=== PATIENT | female | born 1950 | race Caucasian/White ===

== ENCOUNTER → 2024-02-17 09:20 | Outpatient (BNVA) | payer MEDICARE, SELFPAY | PROVIDERS: PCP Nurse Practitioner Family; Visit Provider Nurse Practitioner Family | DX: Z13.6 Encounter for screening for cardiovascular disorders (principal); E55.9 Vitamin D deficiency, unspecified; Z79.899 Other long term (current) drug therapy | CPT/HCPCS: 80053; 80061; 81003; 82306; 83036; 84443; 85025 ==

== ENCOUNTER → 2024-05-21 15:33 | Outpatient (BNVA) | payer MEDICARE, SELFPAY | PROVIDERS: PCP Nurse Practitioner Family; Visit Provider Nurse Practitioner Family | DX: N39.0 Urinary tract infection, site not specified (principal); Z79.899 Other long term (current) drug therapy | CPT/HCPCS: 81003; 87077; 87086; 87184 ==

== ENCOUNTER → 2024-08-03 11:13 | Outpatient (BNVA) | payer MEDICARE, SELFPAY | PROVIDERS: PCP Nurse Practitioner Family; Visit Provider Nurse Practitioner Family | DX: N39.0 Urinary tract infection, site not specified (principal); M81.0 Age-related osteoporosis without current pathological fracture; E03.8 Other specified hypothyroidism; E55.9 Vitamin D deficiency, unspecified; D64.9 Anemia, unspecified; Z79.899 Other long term (current) drug therapy | CPT/HCPCS: 80053; 80061; 81000; 81003; 82306; 82607; 83036; 83921; 84439; 84443; 85025 ==

== ENCOUNTER 2024-08-12 14:06 | Outpatient (CLI) | payer MEDICARE, SELFPAY ==
--- NOTE | 2024-08-12 14:30 | XR_ITS ---
WS: [id number] DEXA (DUAL ENERGY X-RAY ABSORPTIOMETRY) Bone mineral density was performed using a Thryve machine. HISTORY: M81.0 - Age-related osteoporosis without current patholog... COMPARISON: None available. Lumbar spine BMD (L1-L4): 1.095 g/cm2 T score: -0.7 Z score: 1.2 Total hip BMD: Left: 0.641 g/cm2. T score: -2.9 Z score: -1.1 Right: 0.641 g/cm2. T score: -2.9 Z score: -1.1 XR/XR DEXA axial skeleton* [id number] IMPRESSION: OSTEOPOROSIS based upon the WHO classification for females.
== END 2024-08-12 14:07 | disposition home or self-care (01) ==
PROVIDERS: PCP Nurse Practitioner Family; Visit Provider Nurse Practitioner Family
DX: M81.0 Age-related osteoporosis without current pathological fracture (principal)
CPT/HCPCS: 77080

== ENCOUNTER 2024-11-11 18:32 | Emergency (ER) | payer MEDICARE, SELFPAY ==
--- OUTSIDE RECORDS SUMMARY | 2006-04-15 23:14 | XMS_ITS | Continuity of Care Document ---
Author Organization Paul Glover Address [address] [place] [address] Phone Care Team Providers Care Drier Belt Conveyor Name Role Phone Daren Miller MD Unavailable Unavailable Medications Medication Instructions Dosage Effective Dates (start - stop) Status Comments Protonix 40 mg Tab Take one tablet by mouth daily - Active SLOW-MAG 64MGTABLET SA Take one tablet by mouth daily - Active Arimidex 1 mg Tab Take one tablet by mouth daily - Active Klor-Con M20 20 mEq Tab Take one tablet by mouth two times per day - Active Lasix 40 mg Tab Take one tablet by mouth daily - Active Tenormin 25 mg Tab Take one tablet by mouth daily - Active Crestor 20 mg Tab Take one tablet by mouth daily - Active Lotensin 20 mg Tab Take one tablet by mouth daily - Active Lotensin 40 mg Tab Take one tablet by mouth daily - Active Plavix 75 mg Tab Take one tablet by mouth daily - Active Norvasc 10 mg Tab Take one tablet by mouth daily - Active Procedures Procedure Date Init Hosp-da E&m Hi Severity 7 07 Subsqt Hosp-da E&m Minr Compl 7 Subsqt Hosp-da E&m Minr Compl 7 Subsqt Hosp-da E&m Minr Compl 7 Subsqt Hosp-da E&m Minr Compl 7 Advance Directives Directive Yes / No Effective Date File Name No Information Encounters Encounter Description Practice Location Reason(s) For Visit Diagnoses Date Provider Providers Copied on Encounter Init Hosp-da E&m Hi Severity 7 [facility], [address] [employer] [employer] [place], [id number], [place] tel: [phone] [facility] No Information 7 Paul Mercedes. [address], [place], [id number] . tel: [phone] Referring Provider: Daren Miller MD, [address], [place], [address] . tel:[phone] Paul Romero MD [employer], [address] [employer] [place], [id number], [place] tel: [phone] [facility] No Information 6 Paul Colby. [address], [address], [place], [id number] . tel: [phone] Referring Provider: Daren Miller MD, [address], [place], [address] . tel:[phone] Paul Romero MD [employer], [address] [employer] [place], [id number], [place] tel: [phone] [facility] No Information 5 Paul Colby. [address], [address] [place], [id number] . tel: [phone] Referring Provider: Daren Miller MD, [address], [place], [address] . tel:[phone] Paul Romero MD [employer], [address] [facility] [employer] [place], [id number], [place] tel:[phone] [facility] No Information 5 Paul Colby. [address], [address] [place], [id number] . tel: [phone] Referring Provider: Daren Miller MD, [address], [place], [address] . tel:[phone] Paul Romero MD [employer], [address] [place], [id number], [place] tel:[phone] [facility] No Information 200 5 Paul Colby. [address] [facility], [address], [place], [id number] . tel: [phone] Referring Provider: Daren Mliler MD, [address], [place], [address] . tel:[phone] Paul Romero MD [employer], [address] [facility] [id number] [place] tel:[phone] [facility] CAD Graft DiseaseHypertension NOSBenign HypertensionHyperli pidemia 1 Nydia Durant. [address], [place], [id number] . tel: [phone] Family History Family Member Type Diagnosis Age At Onset No Information Payers Payer name Insurance type Covered republican ID Authoriza tion(s) No Information Social History Type Description Quantity Date Captured Comments Sex Female Smoking Status No Information Chief Complaint And Reason For Visit No Information Reason For Referral Reason For Referral No Information History Of Present Illness Encounter Date Complaint History Of Prese nt Illness No Information Functional Status Date Functional Assessmen t No Information Instructions Date Instruction Additional Infor mation No Information Assessments Type Assessment Date No Information Patient Care Teams Name Effective Dates (start - stop) Status Members No Information
[2024-11-11] VITALS (7 sets, daily range): BP systolic 115–139; BP diastolic 58–81; PULSE 58–68; RESP 16–18; TEMP 36.5; O2SAT 94–100; BMI 22.3
--- NOTE | 2024-11-11 18:43 | XRR_ITS ---
PROCEDURE INFORMATION: Exam: XR Chest Exam date and time: 11/11/2024 7:38 PM Age: 74 years old Clinical indication: Chest wall pain; Additional info: Chest pain TECHNIQUE: Imaging protocol: Radiologic exam of the chest. Views: 1 view. COMPARISON: No relevant prior studies available. FINDINGS: Lungs: Small airspace opacity in the right cardiophrenic angle. The remainder of the lungs are clear. Pleural spaces: Unremarkable. No pleural effusion. No pneumothorax. Heart/Mediastinum: Unremarkable. No cardiomegaly. Bones/joints: Unremarkable. XR/XR chest 1V portable [id number] IMPRESSION: 1. Small airspace opacity in the right cardiophrenic angle could represent atelectasis or pneumonia. 2. The remainder of the lungs are clear.
--- OUTSIDE RECORDS SUMMARY | 2024-11-11 18:44 | XMS_ITS | Encounter Summary ---
Author Organization [facility] Address 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
--- OUTSIDE RECORDS SUMMARY | 2024-11-11 18:44 | XMS_ITS | Encounter Summary ---
Author Organization [facility] Address [address] [place] [address] Care Team Providers Care Lockstitch Zipper Setter Name Role Phone Jeffy Negrete MD Primary Care Provider [phone] [phone] Encounter Details Date Type Department Care Team (Late st Contact Info) Description 11/11/2001 Outpatient Historical HIS PATIENT IN A BED Yun Dior MD [address] [facility] [address] [place] [address] HYPOVOLEMIA (Primary Dx) Social History Tobacco Use Types Packs/Day Years Used Date Smoking Tobacco: Never Assessed Comments Unknown Sex and Gender Information Value Date Recorded Sex Assigned at Not on file Legal Sex Female 3:32 AM BEN DAY ARTIST Gender Identity Not on file Sexual Orientation Not on file documented as of this encounter Plan of Treatment Not on file documented as of this encounter Visit Diagnoses Diagnosis Volume depletion- Primary documented in this encounter Care Teams Lockstitch Zipper Setter Relationship Specialty Start Date End Date Jeffy Negrete MD [address] [facility] [address] [place] [address] PCP - General Family Practice 01/07/24 documented as of this encounter
--- OUTSIDE RECORDS SUMMARY | 2024-11-11 18:44 | XMS_ITS | Encounter Summary ---
Author Organization [facility] Address [address] [place] [address] Care Team Providers Care Signal Worker Name Role Phone Jeffy Negrete MD Primary Care Provider +1 [phone] Encounter Details Date Type Department Care Team (Latest Contact Info) Description 04/10/2001 Outpatient Historical HIS [facility] Rogerio Kingsley MD [address] [facility] [address] [place] [address] URIN TRACT INFECTION NOS (Primary Dx) Social History Tobacco Use Types Packs/Day Years Used Date Smoking Tobacco: Never Assessed Comments Unknown Sex and Gender Information Value Date Recorded Sex Assigned at Not on file Legal Sex Female 3:32 AM REGULATORY ATTORNEY Gender Identity Not on file Sexual Orientation Not on file documented as of this encounter Plan of Treatment Not on file documented as of this encounter Visit Diagnoses Diagnosis Urinary tract infection, site not specified- Primary documented in this encounter Care Teams Signal Worker Relationship Specialty Start Date End Date Jeffy Negrete MD [address] [place] [address] PCP - General Family Practice 01/07/24 documented as of this encounter
--- OUTSIDE RECORDS SUMMARY | 2024-11-11 18:44 | XMS_ITS | Encounter Summary ---
Author Organization [employer] [facility] Address [address] [place] [address] Care Team Providers Care Piano Teacher Name Role Phone Jeffy Negrete MD Primary Care Provider +1 [phone] Encounter Details Date Type Department Care Team (Latest Contact Info) Description 04/17/2001 Outpatient Historical [place] [address] [place] [address] SCREENING FOR OSTEOPOROSIS (Primary Dx) Social History Tobacco Use Types Packs/Day Years Used Date Smoking Tobacco: Never Assessed Comments Unknown Sex and Gender Information Value Date Recorded Sex Assigned at Not on file Legal Sex Female 3:32 AM DIGITAL FORENSIC ANALYST Gender Identity Not on file Sexual Orientation Not on file documented as of this encounter Plan of Treatment Not on file documented as of this encounter Visit Diagnoses Diagnosis Special screening for osteoporosis- Primary documented in this encounter Care Teams Piano Teacher Relationship Specialty Start Date End Date Jeffy Negrete MD [address] [facility] [address] [place] [address] PCP - General Family Practice 01/07/24 documented as of this encounter
--- OUTSIDE RECORDS SUMMARY | 2024-11-11 18:44 | XMS_ITS | Encounter Summary ---
Author Organization [facility] Address 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
--- OUTSIDE RECORDS SUMMARY | 2024-11-11 18:44 | XMS_ITS | Encounter Summary ---
Author Organization [facility] Address [address] [place] [address] Care Team Providers Care Client Advocate Name Role Phone Jeffy Negrete MD Primary Care Provider [phone] [phone] Encounter Details Date Type Department Care Team (Late st Contact Info) Description 03/31/2001 Outpatient Historical HIS [facility]PT [place] [address] [place] [address] Social History Tobacco Use Types Packs/Day Years Used Date Smoking Tobacco: Never Assessed Comments Unknown Sex and Gender Information Value Date Recorded Sex Assigned at Not on file Legal Sex Female 3:32 AM GRANTS ADMINISTRATOR Gender Identity Not on file Sexual Orientation Not on file documented as of this encounter Plan of Treatment Not on file documented as of this encounter Visit Diagnoses Not on filedocumented in this encounter Care Teams Client Advocate Relationship Specialty Start Date End Date Jeffy Negrete MD [address] [facility] [address] [place] [address] PCP - General Family Practice 01/07/24 documented as of this encounter
--- OUTSIDE RECORDS SUMMARY | 2024-11-11 18:44 | XMS_ITS | Encounter Summary ---
Author Organization [facility] Address [address] [place] [address] Care Team Providers Care Director Trade Name Role Phone Jeffy Negrete MD Primary Care Provider +1 [phone] Encounter Details Date Type Department Care Team (Latest Contact Info) Description 06/04/2003 Outpatient Historical HIS [facility] Antoine Esqueda MD [address] [address] SCREENING MAMM-MAILG NEOPL-OTHER (Primary Dx) Social History Tobacco Use Types Packs/Day Years Used Date Smoking Tobacco: Never Assessed Comments Unknown Sex and Gender Information Value Date Recorded Sex Assigned at Not on file Legal Sex Female 3:32 AM CANADIAN BACON TIER Gender Identity Not on file Sexual Orientation Not on file documented as of this encounter Plan of Treatment Not on file documented as of this encounter Visit Diagnoses Diagnosis Other screening mammogram- Primary documented in this encounter Care Teams Director Trade Relationship Specialty Start Date End Date Jeffy Negrete MD [address] [place] [address] PCP - General Family Practice 01/07/24 documented as of this encounter
--- OUTSIDE RECORDS SUMMARY | 2024-11-11 18:44 | XMS_ITS | Encounter Summary ---
Author Organization [employer] [facility] Address [address] [place] [address] Care Team Providers Care Quality Assurance Assistant Name Role Phone Jeffy Negrete MD Primary Care Provider +1 [phone] Encounter Details Date Type Department Care Team (Latest Contact Info) Description 12/04/2002 Outpatient [facility] [address] [facility] [address] [place] [address] Eleanor Foley MD NO ADDRESS ON FILE HYPERLIPIDEMIA NEC/NOS (Primary Dx) Social History Tobacco Use Types Packs/Day Years Used Date Smoking Tobacco: Never Assessed Comments Unknown Sex and Gender Information Value Date Recorded Sex Assigned at Not on file 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
--- OUTSIDE RECORDS SUMMARY | 2024-11-11 18:44 | XMS_ITS | Clinical Summary ---
Author Organization [facility] Address [address] [place] [address] Phone Care Team Providers Care Production Broaching Machine Operator Name Role Phone Jeffy Negrete MD Primary Care Provider +1 [phone] Allergies Active Allergy Reactions Criticality Noted Date Comments Amitriptyline Hcl 11/27/2004 Tegaserod 11/27/2004 Tolterodine 11/27/2004 Medications levothyroxine (SYNTHROID) 100 mcg Oral Tab Take 1 Tab by mouth daily. 30 Tab 2 12/10/19 08 Active Additional Information Patient taking differently: 88 mcgOral DAILY, Reported on 01/07/2024 estradiol (CLIMARA) 0.05 mg/24 hr Transdermal PTWK Apply 1 Patch to skin as directed every 7 days. 13 Patch 3 01/05/20 Active Additional Information Patient not taking.Reported on 01/07/2024 lovastatin (MEVACOR) 40 mg tablet Take 1 Tablet by mouth daily. 11/23/19 24 Active aspirin (ECOTRIN EC) 81 mg Tablet, Delayed Release (E.C.) Take 81 mg by mouth daily. Active acyclovir (ZOVIRAX) 400 mg tablet Take 400 mg by mouth see administration instructions. daily Active calcium-vitamin D3 (CALTRATE 600+D) 600 mg-5 mcg (200 unit) Tablet Take 1 Tablet by mouth. Active mirabegron (MYRBETRIQ ORAL) Take 25 mg by mouth. Active Active Problems Problem Noted Date Diagnosed Date Palpitations 01/17/2007 Obesity, unspecified 05/02/2005 Encounter for long-term (current) use of other m edications 04/27/2005 Allergic rhinitis, cause unspecified 11/27/2004 Unspecified hypothyroidism 11/27/2004 Unspecified menopausal and postmenopausal disord er 11/27/2004 Unspecified urinary incontinence 11/27/2004 Migraine, unspecified, with intractable migraine, so stated, without mention of status migrainosus 11/27/2004 Unspecified constipation 11/27/2004 Other and unspecified hyperlipidemia 11/27/2004 Family history of other cardiovascular diseases( V17.49) 11/27/2004 Overview (04/12/2010): Updating IMO/ICD9 Code and Description Family history of malignant neoplasm of breast 0 11/27/2004 Unspecified spontaneous abor tion without mention of complication 11/27/2004 Pain in limb 10/18/2004 Resolved Problems Problem Noted Date Diagnosed Date Resolved Date Cough 01/17/2007 07/05/2007 Sciatica 01/17/2007 07/05/2007 Sprain and strain of other s pecified sites of shoulder and upper arm 01/17/2007 07/05/2007 Disorder of bone and cartilage, unspecified 06/11/2006 07/05/2007 Acute sinusitis, unspecified 05/29/2006 07/05/2007 Routine general medical exam ination at a health care facility 05/02/2006 07/05/2007 Special screening for malign ant neoplasms, colon 05/02/2006 07/05/2007 Diarrhea 09/07/2005 07/05/2007 Screening for diabetes mellitus 08/03/2005 07/05/2007 Acute, but ill-defined, cere brovascular disease 11/27/2004 07/05/2007 Encounters Date Type Department Care Team Description 11/04/2024 External Device Data STL ABSTRACTION Provider, Abstract 2024 External Device Data ST[facility] ABSTRACTION Provider, Abstract 09/30/2024 External Device Data [facility] ABSTRACTION Provider, Abstract 09/30/2024 External Device Data [facility] ABSTRACTION Provider, Abstract 09/02/2024 External Device Data [facility] ABSTRACTION Provider, Abstract from Last 3 Months Immunizations Immunization Administration Dates Next Due (TDVAX)(7 YRS UP) TETANUS AN D DIPHTHERIA TOXOIDS, ADSORBED (2 LF OF TETANUS TOXOID AND 2 LF OF DIPHTHERIA TOXOID), 0.5ML (PF), IM 05/03/2004 Family History Medical History Relation Name Comments Breast Cancer Mother Relation Name Status Comments Mother Social History Tobacco Use Types Packs/Day Years Used Date Smoking Tobacco: Never Alcohol Use Standard Drinks/Week Comments No 0 (1 standard drink = 0.6 oz pur e alcohol) Comments No Sex and Gender Information Value Date Recorded Sex Assigned at Not on file Legal Sex Female 3:32 AM TISSUE COORDINATOR Gender Identity Not on file Sexual Orientation Not on file Last Filed Vital Signs Vital Sign Reading Time Taken Comments Blood Pressure 110/62 01/07/2024 9:53 AM CDT Pulse 58 01/07/2024 9:53 AM CDT Temperature 36.2 C (97.1 F) 01/12/2008 3:46 PM CDT Respiratory Rate 16 01/07/2024 9:53 AM CDT Oxygen Saturation 98% 01/07/2024 9:53 AM CDT Inhaled Oxygen Concentration - - Weight 57.6 kg (127 lb) 01/07/2024 9:53 AM CDT Height 162.6 cm (5' 4 ) 01/07/2024 9:53 AM CDT Body Mass Index 21.8 01/07/2024 9:53 AM CDT Plan of Treatment Health Maintenance Due Date Last Done Comments FIT/ DNA Q 3 YEARS (AUTO ORDER) 1968 FIT/FOBT Q 1 YEAR (AUTO ORDER) 1968 FLEX SIG/CT COLONOGRAPHY Q 5 YEARS (AUTO ORDER) 1968 COLORECTAL CANCER SCREENING (AUTO ORDER) 10/21/1995 COLORECTAL SCREENING 10/21/1995 Colorectal Cancer Screening (AUTO ORDER) 10/21/1995 Colorectal Cancer Screening 10/21/1995 FIT-DNA Q 3 years 10/21/1995 FIT/FOBT Q 1 year 10/21/1995 Flex Sig/CT Colonography Q 5 years 10/21/1995 PNEUMOCOCCAL VACCINE 50+ YEA RS (1 of 1 - PCV) 2000 ZOSTER VACCINE (1 of 2) 2000 DTAP/TDAP/TD VACCINES (1 - Tdap) 05/04/2004 05/03/19 05 Traditional Medicare (ACO) A nnual Wellness Visit 07/05/2008 07/05/2007 Medicare Ad[place] ([place]) Prev entative Visit/Annual Wellness Visit 03/18/2024 07/05/2007, 05/02/2006, 05/03/2004 INFLUENZA VACCINE (#1) 2024 01/07/2024, 2023 BREAST CANCER SCREENING 01/30/2025 01/31/20 24, 12/12/2022, 08/26/2007 RSV VACCINE (60+ or ) (1 - 1-dose 75+ series) 2025 OSTEOPOROSIS SCREENING 06/10/2028 06/11/2023, 2023 Procedures Procedure Name Priority Date/Time Associated Diagnosis Comments MAMMO 3D CHADWICK SCREEN BILAT W OR WO CAD Routine 01/31/2024 10:17 AM TISSUE COORDINATOR Encounter for screening mammogram for breast cancer XR DEXA BONE DENSITY AXIAL 1 OR MORE SITES Routine 06/11/2023 12:32 PM CDT from Last 3 Months or Most Recently Relevant to Health Maintenance Results * MAMMO 3D CHADWICK SCREEN BILAT W OR WO CAD (01/31/2024 10:17 AM TISSUE COORDINATOR) Anatomical Region Laterality Modality Breast Bilateral Mammography, Dig ital Radiography Impressions 02/12/2024 2:28 PM TISSUE COORDINATOR : No mammographic evidence of malignancy. BI-RADS ASSESSMENT: 1 - Negative RECOMMENDATION: Routine annual screening mammography. Narrative 02/12/2024 2:28 PM TISSUE COORDINATOR EXAM: MAMMO SCRN BILAT 3D CHADWICK W OR WO CAD INDICATION: Screening COMPARISON: 12/12/2022 MAMMO PRIOR STUDY BREAST COMPOSITION: The breasts are heterogeneously dense, which may obscure small masses. FINDINGS: RIGHT BREAST: There are no suspicious masses, calcifications, or areas of architectural distortion. LEFT BREAST: There are no suspicious masses, calcifications, or areas of architectural distortion. Mily Carbajal NP MAMMO ORDERABLES Final Result * XR DEXA BONE DENSITY AXIAL 1 OR MORE SITES (06/11/2023 12:32 PM CDT) Anatomical Region Laterality Modality Other Abstract Provider DIAGNOSTIC IMAGING ORDERABLES Edited Result - Final from Last 3 Months or Most Recently Relevant to Health Maintenance Insurance MEDICARE PART A AND B BCBS MEDICARE HMO Care Teams Production Broaching Machine Operator Relationship Specialty Start Date End Date Jeffy Negrete MD [address] [id number] PCP - General Family Practice 01/07/24
--- OUTSIDE RECORDS SUMMARY | 2024-11-11 18:44 | XMS_ITS | Encounter Summary ---
Author Organization [facility] Address 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
--- OUTSIDE RECORDS SUMMARY | 2024-11-11 18:44 | XMS_ITS | Encounter Summary ---
Author Organization [employer] [facility] Address 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
--- OUTSIDE RECORDS SUMMARY | 2024-11-11 18:44 | XMS_ITS | Encounter Summary ---
Author Organization [facility] Address [address] [place] [address] Care Team Providers Care Guidance And Control System Engineer Name Role Phone Jeffy Negrete MD Primary Care Provider +1 -[phone] Encounter Details Date Type Department Care Team (Late st Contact Info) Description 10/08/2001 Outpatient Historical HIS [facility] DEPT OF FAMILY MEDICINE Yanet Cuevas MD NO ADDRESS ON FILE Social History Tobacco Use Types Packs/Day Years Used Date Smoking Tobacco: Never Assessed Comments Unknown Sex and Gender Information Value Date Recorded Sex Assigned at Not on file Legal Sex Female 3:32 AM INSTRUMENT STERILIZER Gender Identity Not on file Sexual Orientation Not on file documented as of this encounter Plan of Treatment Not on file documented as of this encounter Visit Diagnoses Not on filedocumented in this encounter Care Teams Guidance And Control System Engineer Relationship Specialty Start Date End Date Jeffy Negrete MD [address] [facility] [address] [place] [address] PCP - General Family Practice 01/07/24 documented as of this encounter
--- OUTSIDE RECORDS SUMMARY | 2024-11-11 18:44 | XMS_ITS | Encounter Summary ---
Author Organization [facility] Address [address] [place] [address] Care Team Providers Care Vp Research Name Role Phone Jeffy Negrete MD Primary Care Provider +1 [phone] Encounter Details Date Type Department Care Team (Latest Contact Info) Description 07/10/2002 Outpatient Historical HIS [facility] Antoine Esqueda MD [address] [address] SCREENING MAMM-MAILG NEOPL-OTHER (Primary Dx) Social History Tobacco Use Types Packs/Day Years Used Date Smoking Tobacco: Never Assessed Comments Unknown Sex and Gender Information Value Date Recorded Sex Assigned at Not on file Legal Sex Female 3:32 AM EMERGENCY CARE ATTENDANT Gender Identity Not on file Sexual Orientation Not on file documented as of this encounter Plan of Treatment Not on file documented as of this encounter Visit Diagnoses Diagnosis Other screening mammogram- Primary documented in this encounter Care Teams Vp Research Relationship Specialty Start Date End Date Jeffy Negrete MD [address] [place] [address] PCP - General Family Practice 01/07/24 documented as of this encounter
--- OUTSIDE RECORDS SUMMARY | 2024-11-11 18:44 | XMS_ITS | Encounter Summary ---
Author Organization [employer] [facility] Address [address] [place] [address] Care Team Providers Care Manager Of Internal Audit Name Role Phone Jeffy Negrete MD Primary Care Provider +1 [phone] Encounter Details Date Type Department Care Team (Latest Contact Info) Description 10/27/2001 Outpatient Historical HIS [facility] PABLO Steiner, [place] [address] [place] [address] HYPOTHYROIDISM NOS (Primary Dx) Social History Tobacco Use Types Packs/Day Years Used Date Smoking Tobacco: Never Assessed Comments Unknown Sex and Gender Information Value Date Recorded Sex Assigned at Not on file Legal Sex Female 3:32 AM NEW PRODUCT TRAINER Gender Identity Not on file Sexual Orientation Not on file documented as of this encounter Plan of Treatment Not on file documented as of this encounter Visit Diagnoses Diagnosis Unspecified hypothyroidism- Primary documented in this encounter Care Teams Manager Of Internal Audit Relationship Specialty Start Date End Date Jeffy Negreet MD [address] [facility] [address] [place] [address] PCP - General Family Practice 01/07/24 documented as of this encounter
--- OUTSIDE RECORDS SUMMARY | 2024-11-11 18:44 | XMS_ITS | Encounter Summary ---
Author Organization [facility] Address [address] [place] [address] Care Team Providers Care Shook Machine Operator Name Role Phone Jeffy Negrete MD Primary Care Provider +1 -[phone] Encounter Details Date Type Department Care Team (Latest Contact Info) Description 04/22/2003 Outpatient Historical HIS COMMUNITY DIRECTOR HAIR Eleanor Foley MD NO ADDRESS ON FILE PURE HYPERCHOLESTEROLEM (Primary Dx) Social History Tobacco Use Types Packs/Day Years Used Date Smoking Tobacco: Never Assessed Comments Unknown Sex and Gender Information Value Date Recorded Sex Assigned at Not on file Legal Sex Female 3:32 AM ENGINEERING PATTERNMAKER Gender Identity Not on file Sexual Orientation Not on file documented as of this encounter Plan of Treatment Not on file documented as of this encounter Visit Diagnoses Diagnosis Pure hypercholesterolemia- Primary documented in this encounter Care Teams Shook Machine Operator Relationship Specialty Start Date End Date Jeffy Negrete MD [address] [facility] [address] [place] [address] PCP - General Family Practice 01/07/24 documented as of this encounter
--- OUTSIDE RECORDS SUMMARY | 2024-11-11 18:44 | XMS_ITS | Encounter Summary ---
Author Organization [facility] Address [address] [place] [address] Care Team Providers Care Center Consultant Name Role Phone Jeffy Negrete MD Primary Care Provider +1 [phone] Encounter Details Date Type Department Care Team (Latest Contact Info) Description 12/14/2003 Outpatient Historical HIS [facility] PABLO Foley, Eleanor Cheung MD NO ADDRESS ON FILE PURE HYPERCHOLESTEROLEM (Primary Dx) Social History Tobacco Use Types Packs/Day Years Used Date Smoking Tobacco: Never Assessed Comments Unknown Sex and Gender Information Value Date Recorded Sex Assigned at Not on file Legal Sex Female 3:32 AM ONION FARMER Gender Identity Not on file Sexual Orientation Not on file documented as of this encounter Plan of Treatment Not on file documented as of this encounter Visit Diagnoses Diagnosis Pure hypercholesterolemia- Primary documented in this encounter Care Teams Center Consultant Relationship Specialty Start Date End Date Jeffy Negrete MD [address] [facility] 60 [place] [address] PCP - General Family Practice 01/07/24 documented as of this encounter
--- OUTSIDE RECORDS SUMMARY | 2024-11-11 18:44 | XMS_ITS | Encounter Summary ---
Author Organization [facility] Address [address] [place] [address] Care Team Providers Care Natural Resources Specialist Name Role Phone Jeffy Negrete MD Primary Care Provider +1 [phone] Encounter Details Date Type Department Care Team (Latest Contact Info) Description 07/22/1998 Outpatient Historical HIS [facility] Antoine Esqueda MD [address] [address] Other screening mammogram (Primary Dx) Social History Tobacco Use Types Packs/Day Years Used Date Smoking Tobacco: Never Assessed Comments Unknown Sex and Gender Information Value Date Recorded Sex Assigned at Not on file Legal Sex Female 3:32 AM PRODUCT MARKETING MANAGER Gender Identity Not on file Sexual Orientation Not on file documented as of this encounter Plan of Treatment Not on file documented as of this encounter Visit Diagnoses Diagnosis Other screening mammogram- Primary documented in this encounter Care Teams Natural Resources Specialist Relationship Specialty Start Date End Date Jeffy Negrete MD [address] [facility] 60 [place] [address] PCP - General Family Practice 01/07/24 documented as of this encounter
--- OUTSIDE RECORDS SUMMARY | 2024-11-11 18:44 | XMS_ITS | Encounter Summary ---
Author Organization [employer] [facility] Address [address] [place] [address] Care Team Providers Care Digital Imager Name Role Phone Jeffy Negrete MD Primary Care Provider +1 [phone] Encounter Details Date Type Department Care Team (Latest Contact Info) Description 12/16/2000 Outpatient Historical HIS PATIENT IN A BED Opal Joya Sr., MD NO ADDRESS ON FILE Retention of urine, unspecified (Primary Dx) Social History Tobacco Use Types Packs/Day Years Used Date Smoking Tobacco: Never Assessed Comments Unknown Sex and Gender Information Value Date Recorded Sex Assigned at Not on file Legal Sex Female 3:32 AM EDUCATION DIRECTOR Gender Identity Not on file Sexual Orientation Not on file documented as of this encounter Plan of Treatment Not on file documented as of this encounter Visit Diagnoses Diagnosis Retention of urine, unspecified- Primary documented in this encounter Care Teams Digital Imager Relationship Specialty Start Date End Date Jeffy Negrete MD [address] [facility] 60 [place] [address] PCP - General Family Practice 01/07/24 documented as of this encounter
--- OUTSIDE RECORDS SUMMARY | 2024-11-11 18:44 | XMS_ITS | Encounter Summary ---
Author Organization [employer] [facility] Address [address] [place] [address] Care Team Providers Care Lead Generation Representative Name Role Phone Jeffy Negrete MD Primary Care Provider +1 [phone] Encounter Details Date Type Department Care Team (Latest Contact Info) Description 01/12/2008 Outpatient Historical HIS LAB, [address] Eleanor Foley MD NO ADDRESS ON FILE Urinary Tract Infection, Site not Specified Social History Tobacco Use Types Packs/Day Years Used Date Smoking Tobacco: Never Alcohol Use Standard Drinks/Week Comments No 0 (1 standard drink = 0.6 oz pur e alcohol) Comments No Sex and Gender Information Value Date Recorded Sex Assigned at Not on file Legal Sex Female 3:32 AM WRINGER MACHINE OPERATOR Gender Identity Not on file Sexual Orientation Not on file documented as of this encounter Plan of Treatment Not on file documented as of this encounter Visit Diagnoses Diagnosis Urinary tract infection, site not specified documented in this encounter Care Teams Lead Generation Representative Relationship Specialty Start Date End Date Jeffy Negrete MD [address] [facility] [address] [place] [address] PCP - General Family Practice 01/07/24 documented as of this encounter
--- OUTSIDE RECORDS SUMMARY | 2024-11-11 18:44 | XMS_ITS | Encounter Summary ---
Author Organization [employer] [facility] Address [address] [place] [address] Care Team Providers Care Cash Applications Specialist Name Role Phone Jeffy Negrete MD Primary Care Provider +1 -[phone] Encounter Details Date Type Department Care Team (Late st Contact Info) Description 12/03/2001 Outpatient Historical HIS LAB, [address] Yun Dior MD [address] [facility] [address] [place] [address] URIN TRACT INFECTION NOS (Primary Dx) Social History Tobacco Use Types Packs/Day Years Used Date Smoking Tobacco: Never Assessed Comments Unknown Sex and Gender Information Value Date Recorded Sex Assigned at Not on file Legal Sex Female 3:32 AM STUDENT LIFE ADVISOR Gender Identity Not on file Sexual Orientation Not on file documented as of this encounter Plan of Treatment Not on file documented as of this encounter Visit Diagnoses Diagnosis Urinary tract infection, site not specified- Primary documented in this encounter Care Teams Cash Applications Specialist Relationship Specialty Start Date End Date Jeffy Negrete MD [address] [place] [address] PCP - General Family Practice 01/07/24 documented as of this encounter
--- OUTSIDE RECORDS SUMMARY | 2024-11-11 18:44 | XMS_ITS | Encounter Summary ---
Author Organization [facility] Address [address] [place] [address] Care Team Providers Care Garnett Machine Operator Helper Name Role Phone Jeffy Negrete MD Primary Care Provider +1 -[phone] Encounter Details Date Type Department Care Team (Latest Contact Info) Description 03/20/2007 Outpatient Historical [facility] [address] [place] [address] Eleanor Foley MD NO ADDRESS ON FILE Other and Unspecified Hyperlipidemia Social History Tobacco Use Types Packs/Day Years Used Date Smoking Tobacco: Never Assessed Comments Unknown Sex and Gender Information Value Date Recorded Sex Assigned at Not on file Legal Sex Female 3:32 AM FOUNTAIN ROLLER ASSEMBLER Gender Identity Not on file Sexual Orientation Not on file documented as of this encounter Plan of Treatment Not on file documented as of this encounter Procedures Procedure Name Priority Date/Time Associated Diagnosis Comments ALT Routine 03/20/2007 7:52 AM FOUNTAIN ROLLER ASSEMBLER AST Routine 03/20/2007 7:52 AM FOUNTAIN ROLLER ASSEMBLER TSH Routine 03/20/2007 7:52 AM FOUNTAIN ROLLER ASSEMBLER LIPID PANEL Routine 03/20/2007 7:52 AM FOUNTAIN ROLLER ASSEMBLER documented in this encounter Results * (ABNORMAL) TSH (03/20/2007 7:52 AM FOUNTAIN ROLLER ASSEMBLER) TSH <0.02(L) 0.27 - 4.20 uU/mL INTERFACE SYSTEM 03/20/2007 7:52 AM FOUNTAIN ROLLER ASSEMBLER us Eleanor Foley MD CHEMISTRY ORDERABLES Edited INTERFACE SYSTEM Refer to clinic/hospital department * ALT (03/20/2007 7:52 AM FOUNTAIN ROLLER ASSEMBLER) ALT 20 0 - 31 U/L INTERFACE SYSTEM 03/20/2007 7:52 AM FOUNTAIN ROLLER ASSEMBLER Eleanor Foley MD CHEMISTRY ORDERABLES Edited Performing Organization Address City/[facility] Co de Phone Number INTERFACE SYSTEM Refer to clinic/hospital department * AST (03/20/2007 7:52 AM FOUNTAIN ROLLER ASSEMBLER) AST 20 12 - 32 U/L INTERFAC E SYSTEM 03/20/2007 7:52 AM FOUNTAIN ROLLER ASSEMBLER Eleanor Foley MD CHEMISTRY ORDERABLES Edited Performing Organization Address [facility] de Phone Number INTERFACE SYSTEM Refer to clinic/hospital department * (ABNORMAL) LIPID PANEL (03/20/2007 7:52 AM FOUNTAIN ROLLER ASSEMBLER) CHOLESTEROL 183 100 - 199 mg/dL INTERFACE SYSTEM TRIGLYCERIDE 96 10 - 149 mg/dL INTERFACE SYSTEM HDL 55 40 - 59 mg/dL INTERFACE SYSTEM CHOL/HDL RATIO 3.3 2.0 - 5.0 INTER FACE SYSTEM LDL CALCULATED 109(H) <=99 mg/dL INTERFACE SYSTEM LIPID PANEL COMMENT See Below INTERFACE SYSTEM Comment: The adult ATP and pediatric NCEP classifications for lipids are available on the [facility] Intranet at: [email or web address] Select: Lab Policies and Procedures,Current Select: Lipid Panel Interpretation 03/20/2007 7:52 AM FOUNTAIN ROLLER ASSEMBLER Eleanor Foley MD CHEMISTRY ORDERABLES Edited Performing Organization Address City/State/[facility] Co de Phone Number INTERFACE SYSTEM Refer to clinic/hospital department documented in this encounter Visit Diagnoses Diagnosis Other and unspecified hyperlipidemia documented in this encounter Care Teams Garnett Machine Operator Helper Relationship Specialty Start Date End Date Jeffy Negrete MD [address] [facility] [address] [place] [address] PCP - General Family Practice 01/07/24 documented as of this encounter
--- OUTSIDE RECORDS SUMMARY | 2024-11-11 18:44 | XMS_ITS | Encounter Summary ---
Author Organization [facility] Address [address] [place] [address] Care Team Providers Care Fish Cutter Name Role Phone Jeffy Negrete MD Primary Care Provider +1 -[phone] Encounter Details Date Type Department Care Team (Latest Contact Info) Description 08/18/2007 Outpatient Historical HIS [facility] Eleanor Frost MD NO ADDRESS ON FILE Other and Unspecified Hyperlipidemia Social History Tobacco Use Types Packs/Day Years Used Date Smoking Tobacco: Never Assessed Comments Unknown Sex and Gender Information Value Date Recorded Sex Assigned at Not on file Legal Sex Female 3:32 AM DEPENDENCY DIRECTOR Gender Identity Not on file Sexual Orientation Not on file documented as of this encounter Plan of Treatment Not on file documented as of this encounter Visit Diagnoses Diagnosis Other and unspecified hyperlipidemia documented in this encounter Care Teams Fish Cutter Relationship Specialty Start Date End Date Jeffy Negrete MD [address] [facility] [address] [place] [address] PCP - General Family Practice 01/07/24 documented as of this encounter
--- OUTSIDE RECORDS SUMMARY | 2024-11-11 18:44 | XMS_ITS | Encounter Summary ---
Author Organization [facility] Address [address] [place] [address] Care Team Providers Care Functional Consultant Name Role Phone Jeffy Negrete MD Primary Care Provider +1 -[phone] Encounter Details Date Type Department Care Team (Late st Contact Info) Description 11/27/2000 Outpatient Historical HIS CARDIOPULMONARY Denes Sr., Opal Wells MD NO ADDRESS ON FILE Social History Tobacco Use Types Packs/Day Years Used Date Smoking Tobacco: Never Assessed Comments Unknown Sex and Gender Information Value Date Recorded Sex Assigned at Not on file Legal Sex Female 3:32 AM MEMORY CARE DIRECTOR Gender Identity Not on file Sexual Orientation Not on file documented as of this encounter Plan of Treatment Not on file documented as of this encounter Visit Diagnoses Not on filedocumented in this encounter Care Teams Functional Consultant Relationship Specialty Start Date End Date Jeffy Negrete MD [address] [facility] [address] [place] [address] PCP - General Family Practice 01/07/24 documented as of this encounter
--- OUTSIDE RECORDS SUMMARY | 2024-11-11 18:44 | XMS_ITS | Encounter Summary ---
Author Organization [facility] Address [address] [place] [address] Care Team Providers Care Filling And Packing Supervisor Name Role Phone Jeffy Negrete MD Primary Care Provider +1 -[phone] Encounter Details Date Type Department Care Team (Late st Contact Info) Description 12/30/2000 Outpatient Historical HIS [facility] Yun Kingsley MD [address] [facility] [address] [address] Urinary tract infection, site not specified (Primary Dx) Social History Tobacco Use Types Packs/Day Years Used Date Smoking Tobacco: Never Assessed Comments Unknown Sex and Gender Information Value Date Recorded Sex Assigned at Not on file Legal Sex Female 3:32 AM RETAIL ASSOCIATE MANAGER BILINGUAL Gender Identity Not on file Sexual Orientation Not on file documented as of this encounter Plan of Treatment Not on file documented as of this encounter Visit Diagnoses Diagnosis Urinary tract infection, site not specified- Primary documented in this encounter Care Teams Filling And Packing Supervisor Relationship Specialty Start Date End Date Jeffy Negrete MD [address] [facility] [address] [place] [address] PCP - General Family Practice 01/07/24 documented as of this encounter
--- OUTSIDE RECORDS SUMMARY | 2024-11-11 18:44 | XMS_ITS | Encounter Summary ---
Author Organization [facility] Address [address] [place] [address] Care Team Providers Care Paper Bag Maker Name Role Phone Jeffy Negrete MD Primary Care Provider +1 -[phone] Encounter Details Date Type Department Care Team (Latest Contact Info) Description 09/04/1999 Outpatient Historical HIS [facility] Dani Smith MD [address] [place] [address] Acute, but ill-defined, cerebrovascular disease (Primary Dx) Social History Tobacco Use Types Packs/Day Years Used Date Smoking Tobacco: Never Assessed Comments Unknown Sex and Gender Information Value Date Recorded Sex Assigned at Not on file Legal Sex Female 3:32 AM AFTERSCHOOL Gender Identity Not on file Sexual Orientation Not on file documented as of this encounter Plan of Treatment Not on file documented as of this encounter Visit Diagnoses Diagnosis Acute, but ill-defined, cerebrovascular disease- Primary documented in this encounter Care Teams Paper Bag Maker Relationship Specialty Start Date End Date Jeffy Negrete MD [address] [facility] [address] [place] [address] PCP - General Family Practice 01/07/24 documented as of this encounter
--- OUTSIDE RECORDS SUMMARY | 2024-11-11 18:44 | XMS_ITS | Encounter Summary ---
Author Organization [facility] Address [address] [place] [address] Care Team Providers Care Nutrition Coordinator Name Role Phone Jeffy Negrete MD Primary Care Provider +1 -[phone] Encounter Details Date Type Department Care Team (Latest Contact Info) Description 07/18/2006 Outpatient Historical [facility] Medicine [address] [place] [address] Eleanor Foley MD NO ADDRESS ON FILE Other and Unspecified Hyperlipidemia (Primary Dx) Social History Tobacco Use Types Packs/Day Years Used Date Smoking Tobacco: Never Assessed Comments Unknown Sex and Gender Information Value Date Recorded Sex Assigned at Not on file Legal Sex Female 3:32 AM MANAGER PERIOPERATIVE Gender Identity Not on file Sexual Orientation Not on file documented as of this encounter Plan of Treatment Not on file documented as of this encounter Procedures Procedure Name Priority Date/Time Associated Diagnosis Comments ALT Routine 07/18/2006 8:42 AM CDT AST Routine 07/18/2006 8:42 AM CDT LIPID PANEL Routine 07/18/2006 8:42 AM CDT documented in this encounter Results * (ABNORMAL) ALT (07/18/2006 8:42 AM CDT) ALT 36(H) 0 - 31 U/L INTERFACE SYSTEM 07/18/2006 8:42 AM CDT us Eleanor Foley MD CHEMISTRY ORDERABLES Edited INTERFACE SYSTEM Refer to clinic/hospital department * AST (07/18/2006 8:42 AM CDT) AST 27 12 - 32 U/L INTERFAC E SYSTEM 07/18/2006 8:42 AM CDT Eleanor Foley MD CHEMISTRY ORDERABLES Edited Performing Organization Address City/[facility] Co de Phone Number INTERFACE SYSTEM Refer to clinic/hospital department * (ABNORMAL) LIPID PANEL (07/18/2006 8:42 AM CDT) CHOLESTEROL 167 100 - 199 mg/dL INTERFACE SYSTEM TRIGLYCERIDE 156(H) 10 - 149 mg/dL INTERFACE SYSTEM HDL 47 40 - 59 mg/dL INTERFACE SYSTEM CHOL/HDL RATIO 3.6 2.0 - 5.0 INTER FACE SYSTEM LDL CALCULATED 89 <=99 mg/dL INTERFACE SYSTEM LIPID PANEL COMMENT See Below INTERFACE SYSTEM Comment: The adult ATP and pediatric NCEP classifications for lipids are available on the [facility] Intranet at: [email or web address] Select: Lab Policies and Procedures Select: Reference Ranges - Lipids 07/18/2006 8:42 AM CDT Eleanor Foley MD CHEMISTRY ORDERABLES Edited Performing Organization Address City/[facility] Co de Phone Number INTERFACE SYSTEM Refer to clinic/hospital department documented in this encounter Visit Diagnoses Diagnosis Other and unspecified hyperlipidemia- Primary documented in this encounter Care Teams Nutrition Coordinator Relationship Specialty Start Date End Date Jeffy Negrete MD [address] [facility] [address] [place] [address] PCP - General Family Practice 01/07/24 documented as of this encounter
--- OUTSIDE RECORDS SUMMARY | 2024-11-11 18:44 | XMS_ITS | Encounter Summary ---
Author Organization [facility] Address [address] [place] [address] Care Team Providers Care News Producer Name Role Phone Jeffy Negrete MD Primary Care Provider +1 [phone] Encounter Details Date Type Department Care Team (Late st Contact Info) Description 03/24/2007 Orders Only [facility] [id number] [place] [address] [address] [place] [address] Eleanor Samuels MD NO ADDRESS ON FILE Social History Tobacco Use Types Packs/Day Years Used Date Smoking Tobacco: Never Assessed Comments Unknown Sex and Gender Information Value Date Recorded Sex Assigned at Not on file Legal Sex Female 3:32 AM CIRCULAR SAWYER STONE Gender Identity Not on file Sexual Orientation Not on file documented as of this encounter Progress Notes * Eleanor Samuels MD - 07/30/2007 5:17 PM CDT [facility] [place] [address] [facility] [address] [place] [address] March 24, 2007 [facility] [address] [place] [address] [place] [address] Dear Blessing: Your recent test(s) showed the following: LIVER ENZYMES - normal. CHOLESTEROL RESULT: 183 Desirable cholesterol level is less than 200 The cholesterol is your total cholesterol reading. It is equal to the bad (LDL) cholesterol + the good (HDL) cholesterol + 20% of the triglycerides LDL RESULT: 109 LDL GOAL: Desirable LDL level is less than 100. The LDL is your bad cholesterol and should be less than 130. For a diabetic or someone with known blocked arteries, previous heart attack, stroke or bypass surgery, it should be less than 70. The higher the value, the more likely you will develop clogged arteries HDL RESULT: 55 Desirable HDL level is 40 or greater The HDL is your good cholesterol and should be over 40. The higher the value, the less likely you will develop clogged arteries TRIGLYCERIDES RESULT: 96 Desirable triglycerides level is less than 150 The Triglycerides are blood fats associated with vascular (blood vessel) disease. The number shouldbe less than 150. The higher the value, the more likely you will develop clogged arteries TSH - slightly low. RECOMMENDATIONS: We need to adjust the medication dose for your cholesterol, thyroid. MEDICATIONS: SYNTHROID ORAL TABLET 137 MCG, 1 Every Day, 30 Dispensed, 2 Fills, status: NEW PRESCRIPTION, 03/24/2007. SIMVASTATIN ORAL TABLET 40 MG, 1 Every Day, 90 Dispensed, status: NEW PRESCRIPTION, 03/24/2007. SYNTHROID ORAL TABLET 150 MCG, 1 Every Day, 30 Dispensed, 1 Fills, status: DISCONTINUED, 03/24/2007. SIMVASTATIN ORAL TABLET 20 MG, 1 Every Day, 90 Dispensed, 3 Fills, status: DISCONTINUED, 03/24/2007. FOLLOW-UP: Repeat your lab tests in 3 months. Sincerely yours, ELEANOR SAMUELS MD documented in this encounter Plan of Treatment Not on file documented as of this encounter Visit Diagnoses Not on filedocumented in this encounter Care Teams News Producer Relationship Specialty Start Date End Date Jeffy Negrete MD [address] [phone] PCP - General Family Practice 01/07/24 documented as of this encounter
--- OUTSIDE RECORDS SUMMARY | 2024-11-11 18:44 | XMS_ITS | Encounter Summary ---
Author Organization [facility] Address [address] [place] [address] Care Team Providers Care Supervisor Fur Floor Worker Name Role Phone Jeffy Negrete MD Primary Care Provider +1 [phone] Encounter Details Date Type Department Care Team (Latest Contact Info) Description 11/19/2007 Outpatient Historical [facility] Family Medicine [address] [place] [address] Garth Rodriguez MD [address] [place] [address] Unspecified Hypothyroidism Social History Tobacco Use Types Packs/Day Years Used Date Smoking Tobacco: Never Alcohol Use Standard Drinks/Week Comments No 0 (1 standard drink = 0.6 oz pur e alcohol) Comments No Sex and Gender Information Value Date Recorded Sex Assigned at Not on file Legal Sex Female 3:32 AM RESIDENCE LIFE COORDINATOR Gender Identity Not on file Sexual Orientation Not on file documented as of this encounter Plan of Treatment Not on file documented as of this encounter Visit Diagnoses Diagnosis Unspecified hypothyroidism documented in this encounter Care Teams Supervisor Fur Floor Worker Relationship Specialty Start Date End Date Jeffy Negrete MD [address] [facility] [address] [place] [address] PCP - General Family Practice 01/07/24 documented as of this encounter
--- OUTSIDE RECORDS SUMMARY | 2024-11-11 18:44 | XMS_ITS | Encounter Summary ---
Author Organization [facility] Address 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
--- OUTSIDE RECORDS SUMMARY | 2024-11-11 18:44 | XMS_ITS | Encounter Summary ---
Author Organization [facility] Address [address] [place] [address] Care Team Providers Care Regional Safety Manager Name Role Phone Jeffy Negrete MD Primary Care Provider +1 [phone] Encounter Details Date Type Department Care Team (Latest Contact Info) Description 12/03/2000 Inpatient Historical [facility] Antoine Nieto MD [address] [place] [address] Genital prolapse NEC (Primary Dx) Social History Tobacco Use Types Packs/Day Years Used Date Smoking Tobacco: Never Assessed Comments Unknown Sex and Gender Information Value Date Recorded Sex Assigned at Not on file Legal Sex Female 3:32 AM PIE FILLING MIXER Gender Identity Not on file Sexual Orientation Not on file documented as of this encounter Plan of Treatment Not on file documented as of this encounter Visit Diagnoses Diagnosis Genital prolapse NEC- Primary Other specified genital prolapse documented in this encounter Care Teams Regional Safety Manager Relationship Specialty Start Date End Date Jeffy Negrete MD [address] [facility] [address] [place] [address] PCP - General Family Practice 01/07/24 documented as of this encounter
--- OUTSIDE RECORDS SUMMARY | 2024-11-11 18:44 | XMS_ITS | Encounter Summary ---
Author Organization [facility] Address [address] [place] [address] Care Team Providers Care Cutter Operator Brick Name Role Phone Jeffy Negrete MD Primary Care Provider +1 [phone] Encounter Details Date Type Department Care Team (Late st Contact Info) Description 12/13/2000 Emergency [facility] [place] [address] [facility] [address] [place] [address] Er, Authorized P NO ADDRESS ON FILE Retention of urine, unspecified (Primary Dx) Social History Tobacco Use Types Packs/Day Years Used Date Smoking Tobacco: Never Assessed Comments Unknown Sex and Gender Information Value Date Recorded Sex Assigned at Not on file Legal Sex Female 3: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
--- OUTSIDE RECORDS SUMMARY | 2024-11-11 18:44 | XMS_ITS | Encounter Summary ---
Author Organization [facility] Address [address] [place] [address] Care Team Providers Care Director Of Vocational Training Name Role Phone Jeffy Negrete MD Primary Care Provider +1 [phone] Encounter Details Date Type Department Care Team (Latest Contact Info) Description 04/21/2001 Outpatient Historical [facility] PABLO Steiner, [place] [address] [place] [address] SCREENING MAL NEOP-OTHER NEOPLASM (Primary Dx) Social History Tobacco Use Types Packs/Day Years Used Date Smoking Tobacco: Never Assessed Comments Unknown Sex and Gender Information Value Date Recorded Sex Assigned at Not on file Legal Sex Female 3:32 AM PRINTING PLATE CLERK Gender Identity Not on file Sexual Orientation Not on file documented as of this encounter Plan of Treatment Not on file documented as of this encounter Visit Diagnoses Diagnosis Special screening for other malignant neoplasms- Primary documented in this encounter Care Teams Director Of Vocational Training Relationship Specialty Start Date End Date Jeffy Negrete MD [address] [facility] [address] [place] [address] PCP - General Family Practice 01/07/24 documented as of this encounter
--- OUTSIDE RECORDS SUMMARY | 2024-11-11 18:44 | XMS_ITS | Encounter Summary ---
Author Organization [facility] Address [address] [place] [address] Care Team Providers Care Equity Research Analyst Name Role Phone Jeffy Negrete MD Primary Care Provider +1 [phone] Encounter Details Date Type Department Care Team (Late st Contact Info) Description 07/18/2006 Orders Only [facility] [address] [place] [address] Eleanor Foley MD NO ADDRESS ON FILE Social History Tobacco Use Types Packs/Day Years Used Date Smoking Tobacco: Never Assessed Comments Unknown Sex and Gender Information Value Date Recorded Sex Assigned at Not on file Legal Sex Female 3:32 AM DIRECTOR OF RESTAURANTS Gender Identity Not on file Sexual Orientation Not on file documented as of this encounter Progress Notes * Eleanor Foley MD - 08/07/2007 8:03 AM CDT NURSE NAME: Maricarmen Brown PULSE: 64. Right Radial, Regular TEMPERATURE: 97.7??f. Oral WEIGHT: [id number]. BLOOD PRESSURE: 99/67. Right Arm Sitting ALLERGIES: Allergies are as listed. CHIEF COMPLAINT URI x 2 weeks HISTORY: HISTORY OF PRESENT ILLNESS: UPPER RESPIRATORY: The upper respiratory symptoms began approximately 2 weeks ago. Symptoms includecough, symptoms include facial pain, felt warm, symptoms include nasal congestion, symptoms includenasal discharge, symptoms include post nasal drainage, symptoms of sore throat. PHYSICAL EXAMINATION: CONSTITUTIONAL: GENERAL APPEARANCE: OVERWEIGHT BODY HABITUS. EYES: CONJUNCTIVAE/LIDS: Sclera appear normal. EARS, NOSE, MOUTH AND THROAT: EXTERNAL/EARS AND NOSE: Overall appearance normal with no scars, lesions or masses. EARS: Tympanic membranes shiny without retraction. Canals unremarkable. Hearing grossly normal. NOSE (AND SINUS): No abnormality of the nose or sinuses is noted. ORAL: Inspection of gums, lips, palate, and teeth normal. No scars, lesions, or masses. Oral mucosaunremarkable with non-inflamed posterior pharynx. RESPIRATORY: Clear to auscultation and percussion. Normal respiratory effort. CARDIOVASCULAR: CARDIAC: Regular rhythm. No murmurs, rubs, or gallops. LYMPHATICS: No lymphadenopathy in the neck, axillae, or groin. ASSESSMENT/PLAN: 461.9-SINUSITIS UNSPECIFIED MEDICATIONS: AUGMENTIN ORAL TABLET 875-125 MG, 1 Two Times A Day, 28 Dispensed, status: NEW PRESCRIPTION, 07/18/2006. Electronically Signed by: Eleanor Foley MD on , July 18, 2006 documented in this encounter Plan of Treatment Not on file documented as of this encounter Visit Diagnoses Not on filedocumented in this encounter Care Teams Equity Research Analyst Relationship Specialty Start Date End Date Jeffy Negrete MD [address] [phone] PCP - General Family Practice 01/07/24 documented as of this encounter
--- OUTSIDE RECORDS SUMMARY | 2024-11-11 18:44 | XMS_ITS | Encounter Summary ---
Author Organization [facility] Address [address] [place] [address] Care Team Providers Care Maintenance Journeyman Name Role Phone Jeffy Negrete MD Primary Care Provider [phone] [phone] Encounter Details Date Type Department Care Team (Late st Contact Info) Description 02/04/2002 Outpatient Historical [facility] Family Medicine [address] [place] [address] Eleanor Foley MD NO ADDRESS ON FILE Social History Tobacco Use Types Packs/Day Years Used Date Smoking Tobacco: Never Assessed Comments Unknown Sex and Gender Information Value Date Recorded Sex Assigned at Not on file Legal Sex Female 3:32 AM PSYCHOTHERAPIST SOCIAL WORKER Gender Identity Not on file Sexual Orientation Not on file documented as of this encounter Plan of Treatment Not on file documented as of this encounter Visit Diagnoses Not on filedocumented in this encounter Care Teams Maintenance Journeyman Relationship Specialty Start Date End Date Jeffy Negrete MD [address] [facility] [address] [place] [address] PCP - General Family Practice 01/07/24 documented as of this encounter
--- OUTSIDE RECORDS SUMMARY | 2024-11-11 18:44 | XMS_ITS | Encounter Summary ---
Author Organization [facility] Address [address] [place] [address] Care Team Providers Care Plastics Production Machine Operator Name Role Phone Jeffy Negrete MD Primary Care Provider +1 -[phone] Encounter Details Date Type Department Care Team (Latest Contact Info) Description 04/03/2001 Outpatient Historical HIS [facility] PABLO Steiner, [place] [address] [place] [address] MIXED HYPERLIPIDEMIA (Primary Dx) Social History Tobacco Use Types Packs/Day Years Used Date Smoking Tobacco: Never Assessed Comments Unknown Sex and Gender Information Value Date Recorded Sex Assigned at Not on file Legal Sex Female 3:32 AM PAPER CORE MACHINE OPERATOR Gender Identity Not on file Sexual Orientation Not on file documented as of this encounter Plan of Treatment Not on file documented as of this encounter Visit Diagnoses Diagnosis Mixed hyperlipidemia- Primary documented in this encounter Care Teams Plastics Production Machine Operator Relationship Specialty Start Date End Date Jeffy Negrete MD [address] [facility] 60 [place] [address] PCP - General Family Practice 01/07/24 documented as of this encounter
--- OUTSIDE RECORDS SUMMARY | 2024-11-11 18:44 | XMS_ITS | Encounter Summary ---
Author Organization [facility] Address [address] [place] [address] Care Team Providers Care Language And Literature Division Chair Name Role Phone Jeffy Negrete MD Primary Care Provider +1 [phone] Encounter Details Date Type Department Care Team (Latest Contact Info) Description 05/10/1999 Outpatient Historical HIS [facility] Antoine Esqueda MD [address] [address] Diffuse cystic mastopathy (Primary Dx) Social History Tobacco Use Types Packs/Day Years Used Date Smoking Tobacco: Never Assessed Comments Unknown Sex and Gender Information Value Date Recorded Sex Assigned at Not on file Legal Sex Female 3:32 AM SHOE CUTTER Gender Identity Not on file Sexual Orientation Not on file documented as of this encounter Plan of Treatment Not on file documented as of this encounter Visit Diagnoses Diagnosis Diffuse cystic mastopathy- Primary documented in this encounter Care Teams Language And Literature Division Chair Relationship Specialty Start Date End Date Jeffy Negrete MD [address] [facility] 60 [place] [address] PCP - General Family Practice 01/07/24 documented as of this encounter
--- OUTSIDE RECORDS SUMMARY | 2024-11-11 18:44 | XMS_ITS | Encounter Summary ---
Author Organization [facility] Address [address] [place] [address] Care Team Providers Care Workforce Management Manager Name Role Phone Jeffy Negrete MD Primary Care Provider +1 -[phone] Encounter Details Date Type Department Care Team (Late st Contact Info) Description 09/09/2002 Outpatient Historical [facility] Family Medicine [address] [place] [address] Eleanor Foley MD NO ADDRESS ON FILE Social History Tobacco Use Types Packs/Day Years Used Date Smoking Tobacco: Never Assessed Comments Unknown Sex and Gender Information Value Date Recorded Sex Assigned at Not on file Legal Sex Female 3:32 AM FLAP LINING BINDER Gender Identity Not on file Sexual Orientation Not on file documented as of this encounter Plan of Treatment Not on file documented as of this encounter Visit Diagnoses Not on filedocumented in this encounter Care Teams Workforce Management Manager Relationship Specialty Start Date End Date Jeffy Negrete MD [address] [facility] [address] [place] [address] PCP - General Family Practice 01/07/24 documented as of this encounter
--- OUTSIDE RECORDS SUMMARY | 2024-11-11 18:44 | XMS_ITS | Encounter Summary ---
Author Organization [facility] Address [address] [place] [address] Care Team Providers Care Automotive Product Specialist Name Role Phone Jeffy Negrete MD Primary Care Provider +1 -[phone] Encounter Details Date Type Department Care Team (Latest Contact Info) Description 09/26/2001 Outpatient Historical HIS [facility] Rogerio Kingsley MD [address] [facility] [address] [place] [address] URIN TRACT INFECTION NOS (Primary Dx) Social History Tobacco Use Types Packs/Day Years Used Date Smoking Tobacco: Never Assessed Comments Unknown Sex and Gender Information Value Date Recorded Sex Assigned at Not on file Legal Sex Female 3:32 AM MAGNETIC DOCTOR Gender Identity Not on file Sexual Orientation Not on file documented as of this encounter Plan of Treatment Not on file documented as of this encounter Visit Diagnoses Diagnosis Urinary tract infection, site not specified- Primary documented in this encounter Care Teams Automotive Product Specialist Relationship Specialty Start Date End Date Jeffy Negrete MD [address] [place] [address] PCP - General Family Practice 01/07/24 documented as of this encounter
--- OUTSIDE RECORDS SUMMARY | 2024-11-11 18:44 | XMS_ITS | Encounter Summary ---
Author Organization [employer] Address [address] [place] [address] Care Team Providers Care Sourcing Intern Name Role Phone Jeffy Negrete MD Primary Care Provider +1 -[phone] Encounter Details Date Type Department Care Team (Late st Contact Info) Description 10/18/1999 Emergency [facility] Festus Mckeon MD NO ADDRESS ON FILE Er, Authorized P NO ADDRESS ON FILE Headache(784.0) (Primary Dx) Social History Tobacco Use Types Packs/Day Years Used Date Smoking Tobacco: Never Assessed Comments Unknown Sex and Gender Information Value Date Recorded Sex Assigned at Not on file Legal Sex Female 3:32 AM MANUFACTURING CHIEF ENGINEER Gender Identity Not on file Sexual Orientation Not on file documented as of this encounter Plan of Treatment Not on file documented as of this encounter Visit Diagnoses Diagnosis Headache(784.0)- Primary Headache documented in this encounter Care Teams Sourcing Intern Relationship Specialty Start Date End Date Jeffy Negrete MD [address] [facility] [address] [place] [address] PCP - General Family Practice 01/07/24 documented as of this encounter
--- OUTSIDE RECORDS SUMMARY | 2024-11-11 18:44 | XMS_ITS | Encounter Summary ---
Author Organization [facility] Address [address] [place] [address] Care Team Providers Care Brine Process Operator Name Role Phone Jeffy Negrete MD Primary Care Provider +1 -[phone] Encounter Details Date Type Department Care Team (Latest Contact Info) Description 07/23/2001 Outpatient Historical HIS [facility] PABLO Steiner, [place] [address] [place] [address] HYPOTHYROIDISM NOS (Primary Dx) Social History Tobacco Use Types Packs/Day Years Used Date Smoking Tobacco: Never Assessed Comments Unknown Sex and Gender Information Value Date Recorded Sex Assigned at Not on file Legal Sex Female 3:32 AM RESOLUTION ANALYST Gender Identity Not on file Sexual Orientation Not on file documented as of this encounter Plan of Treatment Not on file documented as of this encounter Visit Diagnoses Diagnosis Unspecified hypothyroidism- Primary documented in this encounter Care Teams Brine Process Operator Relationship Specialty Start Date End Date Jeffy Negrete MD [address] [facility] 60 [place] [address] PCP - General Family Practice 01/07/24 documented as of this encounter
--- OUTSIDE RECORDS SUMMARY | 2024-11-11 18:44 | XMS_ITS | Encounter Summary ---
Author Organization [facility] Address [address] [place] [address] Care Team Providers Care Care Nurse Rn Name Role Phone Jeffy Negrete MD Primary Care Provider +1 [phone] Encounter Details Date Type Department Care Team (Latest Contact Info) Description 05/11/1999 Outpatient Historical HIS [facility] Dani Smith MD [address] [place] [address] Acute, but ill-defined, cerebrovascular disease (Primary Dx) Social History Tobacco Use Types Packs/Day Years Used Date Smoking Tobacco: Never Assessed Comments Unknown Sex and Gender Information Value Date Recorded Sex Assigned at Not on file Legal Sex Female 3:32 AM EXHIBIT TECHNICIAN Gender Identity Not on file Sexual Orientation Not on file documented as of this encounter Plan of Treatment Not on file documented as of this encounter Visit Diagnoses Diagnosis Acute, but ill-defined, cerebrovascular disease- Primary documented in this encounter Care Teams Care Nurse Rn Relationship Specialty Start Date End Date Jeffy Negrete MD [address] [facility] [address] [place] [address] PCP - General Family Practice 01/07/24 documented as of this encounter
--- OUTSIDE RECORDS SUMMARY | 2024-11-11 18:44 | XMS_ITS | Encounter Summary ---
Author Organization [facility] Address [address] [place] [address] Care Team Providers Care Area Supervisor Name Role Phone Jeffy Negrete MD Primary Care Provider +1 -[phone] Encounter Details Date Type Department Care Team (Late st Contact Info) Description 11/04/2001 Inpatient Historical [facility] Yun Dior MD [address] [facility] [address] [place] [address] VAGINAL ENTEROCELE (Primary Dx) Social History Tobacco Use Types Packs/Day Years Used Date Smoking Tobacco: Never Assessed Comments Unknown Sex and Gender Information Value Date Recorded Sex Assigned at Not on file Legal Sex Female 3:32 AM ACCT EXEC Gender Identity Not on file Sexual Orientation Not on file documented as of this encounter Plan of Treatment Not on file documented as of this encounter Visit Diagnoses Diagnosis Vaginal enterocele, congenital or acquired- Primary documented in this encounter Care Teams Area Supervisor Relationship Specialty Start Date End Date Jeffy Negrete MD [address] [facility] 60 [place] [address] PCP - General Family Practice 01/07/24 documented as of this encounter
--- OUTSIDE RECORDS SUMMARY | 2024-11-11 18:44 | XMS_ITS | Encounter Summary ---
Author Organization [facility] Address [address] [place] [address] Care Team Providers Care Spanish Lecturer Name Role Phone Jeffy Negrete MD Primary Care Provider +1 -[phone] Encounter Details Date Type Department Care Team (Late st Contact Info) Description 12/06/2003 Outpatient Historical [facility] Eleanor Frost MD NO ADDRESS ON FILE Social History Tobacco Use Types Packs/Day Years Used Date Smoking Tobacco: Never Assessed Comments Unknown Sex and Gender Information Value Date Recorded Sex Assigned at Not on file Legal Sex Female 3:32 AM MANAGER COLLEGE Gender Identity Not on file Sexual Orientation Not on file documented as of this encounter Plan of Treatment Not on file documented as of this encounter Visit Diagnoses Not on filedocumented in this encounter Care Teams Spanish Lecturer Relationship Specialty Start Date End Date Jeffy Negrete MD [address] [facility] [address] [place] [address] PCP - General Family Practice 01/07/24 documented as of this encounter
--- OUTSIDE RECORDS SUMMARY | 2024-11-11 18:44 | XMS_ITS | Encounter Summary ---
Author Organization [facility] Address 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
--- OUTSIDE RECORDS SUMMARY | 2024-11-11 18:44 | XMS_ITS | Encounter Summary ---
Author Organization [employer] [facility] Address [address] [place] [address] Care Team Providers Care Charge Weigher Name Role Phone Jeffy Negrete MD Primary Care Provider +1 [phone] Encounter Details Date Type Department Care Team (Late st Contact Info) Description 09/03/2002 Outpatient Historical [facility], [address] Yun Dior MD [address] [facility] [address] [place] [address] URIN TRACT INFECTION NOS (Primary Dx) Social History Tobacco Use Types Packs/Day Years Used Date Smoking Tobacco: Never Assessed Comments Unknown Sex and Gender Information Value Date Recorded Sex Assigned at Not on file Legal Sex Female 3:32 AM FRUIT II FARMWORKER Gender Identity Not on file Sexual Orientation Not on file documented as of this encounter Plan of Treatment Not on file documented as of this encounter Visit Diagnoses Diagnosis Urinary tract infection, site not specified- Primary documented in this encounter Care Teams Charge Weigher Relationship Specialty Start Date End Date Jeffy Negrete MD [address] [place] [address] PCP - General Family Practice 01/07/24 documented as of this encounter
--- OUTSIDE RECORDS SUMMARY | 2024-11-11 18:44 | XMS_ITS | Encounter Summary ---
Author Organization [employer] [facility] Address [address] [place] [address] Care Team Providers Care Application Helper Name Role Phone Jeffy Negrete MD Primary Care Provider +1 -[phone] Encounter Details Date Type Department Care Team (Late st Contact Info) Description 11/11/2001 Outpatient Historical [facility] Support [facility]. (Adt Cardiology[facility]) [address] [place] [address] Anselmo Lopez MD NO ADDRESS ON FILE Social History Tobacco Use Types Packs/Day Years Used Date Smoking Tobacco: Never Assessed Comments Unknown Sex and Gender Information Value Date Recorded Sex Assigned at Not on file Legal Sex Female 3:32 AM PALEOLOGY PROFESSOR Gender Identity Not on file Sexual Orientation Not on file documented as of this encounter Plan of Treatment Not on file documented as of this encounter Visit Diagnoses Not on filedocumented in this encounter Care Teams Application Helper Relationship Specialty Start Date End Date Jeffy Negrete MD [address] [facility] [address] [place] [address] PCP - General Family Practice 01/07/24 documented as of this encounter
--- OUTSIDE RECORDS SUMMARY | 2024-11-11 18:44 | XMS_ITS | Encounter Summary ---
Author Organization [employer] [facility] Address [address] [place] [address] Care Team Providers Care Air Drier Machine Operator Name Role Phone Jeffy Negrete MD Primary Care Provider +1 [phone] Encounter Details Date Type Department Care Team (Late st Contact Info) Description 08/19/2002 Outpatient Historical [facility], [address] Yun Dior MD [address] [facility] [address] [place] [address] URIN TRACT INFECTION NOS (Primary Dx) Social History Tobacco Use Types Packs/Day Years Used Date Smoking Tobacco: Never Assessed Comments Unknown Sex and Gender Information Value Date Recorded Sex Assigned at Not on file Legal Sex Female 3:32 AM RN LACTATION CONSULTANT Gender Identity Not on file Sexual Orientation Not on file documented as of this encounter Plan of Treatment Not on file documented as of this encounter Visit Diagnoses Diagnosis Urinary tract infection, site not specified- Primary documented in this encounter Care Teams Air Drier Machine Operator Relationship Specialty Start Date End Date Jeffy Negrete MD [address] [place] [address] PCP - General Family Practice 01/07/24 documented as of this encounter
--- OUTSIDE RECORDS SUMMARY | 2024-11-11 18:44 | XMS_ITS | Encounter Summary ---
Author Organization [facility] Address [address] [place] [address] Care Team Providers Care Lpn Rn Hospice Name Role Phone Jeffy Negrete MD Primary Care Provider +1 [phone] Encounter Details Date Type Department Care Team (Late st Contact Info) Description 05/10/[address] [facility] Internal Medicine Medical Gravel Switch A [address] [facility] [address] [address] Dani Mayer MD [address] [place] [address] Social History Tobacco Use Types Packs/Day Years Used Date Smoking Tobacco: Never Assessed Comments Unknown Sex and Gender Information Value Date Recorded Sex Assigned at Not on file Legal Sex Female 3:32 AM BUREAU DIRECTOR Gender Identity Not on file Sexual Orientation Not on file documented as of this encounter Plan of Treatment Not on file documented as of this encounter Visit Diagnoses Not on filedocumented in this encounter Care Teams Lpn Rn Hospice Relationship Specialty Start Date End Date Jeffy Negrete MD [address] [facility] [address] [place] [address] PCP - General Family Practice 01/07/24 documented as of this encounter
--- OUTSIDE RECORDS SUMMARY | 2024-11-11 18:44 | XMS_ITS | Encounter Summary ---
Author Organization [facility] Address [address] [place] [address] Care Team Providers Care Retail Interior Designer Name Role Phone Jeffy Negrete MD Primary Care Provider +1 [phone] Encounter Details Date Type Department Care Team (Late st Contact Info) Description 11/04/2024 External Device Data [facility] ABSTRACTION Provider, Abstract NO ADDRESS ON FILE Social History Tobacco Use Types Packs/Day Years Used Date Smoking Tobacco: Never Alcohol Use Standard Drinks/Week Comments No 0 (1 standard drink = 0.6 oz pur e alcohol) Comments No Sex and Gender Information Value Date Recorded Sex Assigned at Not on file Legal Sex Female 3:32 AM FRONT DESK SUPERVISOR Gender Identity Not on file Sexual Orientation Not on file documented as of this encounter Plan of Treatment Not on file documented as of this encounter Visit Diagnoses Not on filedocumented in this encounter Care Teams Retail Interior Designer Relationship Specialty Start Date End Date Jeffy Negrete MD [address] [facility] [address] [place] [address] PCP - General Family Practice 01/07/24 documented as of this encounter
--- OUTSIDE RECORDS SUMMARY | 2024-11-11 18:44 | XMS_ITS | Encounter Summary ---
Author Organization [facility] Address [address] [place] [address] Care Team Providers Care Sergeant Missile Crewman Name Role Phone Jeffy Negrete MD Primary Care Provider +1 -[phone] Encounter Details Date Type Department Care Team (Late st Contact Info) Description 12/02/2002 Outpatient Historical [facility] Family Medicine [address] [place] [address] Eleanor Foley MD NO ADDRESS ON FILE Social History Tobacco Use Types Packs/Day Years Used Date Smoking Tobacco: Never Assessed Comments Unknown Sex and Gender Information Value Date Recorded Sex Assigned at Not on file Legal Sex Female 3:32 AM ALLOCATIONS CLERK Gender Identity Not on file Sexual Orientation Not on file documented as of this encounter Plan of Treatment Not on file documented as of this encounter Visit Diagnoses Not on filedocumented in this encounter Care Teams Sergeant Missile Crewman Relationship Specialty Start Date End Date Jeffy Negrete MD [address] [facility] [address] [place] [address] PCP - General Family Practice 01/07/24 documented as of this encounter
--- OUTSIDE RECORDS SUMMARY | 2024-11-11 18:44 | XMS_ITS | Encounter Summary ---
Author Organization [facility] Address [address] [place] [address] Care Team Providers Care Vice President Of Engineering Name Role Phone Jeffy Negrete MD Primary Care Provider +1 -[phone] Encounter Details Date Type Department Care Team (Late st Contact Info) Description 08/16/2006 Orders Only [facility] Medicine [address] [place] [address] Eleanor Foley MD NO ADDRESS ON FILE Social History Tobacco Use Types Packs/Day Years Used Date Smoking Tobacco: Never Assessed Comments Unknown Sex and Gender Information Value Date Recorded Sex Assigned at Not on file Legal Sex Female 3:32 AM CAR RENTAL SALES ASSISTANT Gender Identity Not on file Sexual Orientation Not on file documented as of this encounter Progress Notes * Eleanor Foley MD - 08/06/2007 1:43 PM CDT TIME:09:02 am PATIENT`S HOME PHONE: PATIENT`S WORK PHONE: PATIENT`S INSURANCE: [facility] WHO TOOK THE CALL: Alexsandra Herrera GENERAL INFORMATION WHO CALLED: Patient called. PHARMACY NUMBER: fax [phone] SECTION 1: REQUESTED ACTION diana 08/16/06 at 09:02 am: MEDICATION REQUEST: MEDICATIONS: ESTRADIOL TRANSDERMAL PATCH WEEKLY 0.05 MG/24HR, apply weekly, 13 Dispensed, 3 Fills, status: NEW PRESCRIPTION, 05/15/2005. needs 90 day new mail rx with refill please DOCTOR`S RESPONSE: fiorella 08/16/06 at 09:27 am MEDICATIONS: ESTRADIOL TRANSDERMAL PATCH WEEKLY 0.05 MG/24HR, apply weekly, 13 Dispensed, 3 Fills, status: CONTINUED, 08/16/2006. FINAL ACTION: jaclyn 08/16/06 at 10:08 am Rx faxed with confirmation to above number. Electronically Signed by: Genevieve Odell RN on Wednesday, August 16, 2006 documented in this encounter Plan of Treatment Not on file documented as of this encounter Visit Diagnoses Not on filedocumented in this encounter Care Teams Vice President Of Engineering Relationship Specialty Start Date End Date Jeffy Negrete MD [address] [phone] PCP - General Family Practice 01/07/24 documented as of this encounter
--- OUTSIDE RECORDS SUMMARY | 2024-11-11 18:44 | XMS_ITS | Encounter Summary ---
Author Organization [facility] Address [address] [place] [address] Care Team Providers Care Director Of Early Childhood Education Name Role Phone Jeffy Negrete MD Primary Care Provider +1 -[phone] Encounter Details Date Type Department Care Team (Late st Contact Info) Description 04/01/2003 Outpatient Historical [facility] Medicine [address] [place] [address] Eleanor Foley MD NO ADDRESS ON FILE Social History Tobacco Use Types Packs/Day Years Used Date Smoking Tobacco: Never Assessed Comments Unknown Sex and Gender Information Value Date Recorded Sex Assigned at Not on file Legal Sex Female 3:32 AM RAW SCALES OPERATOR Gender Identity Not on file Sexual Orientation Not on file documented as of this encounter Plan of Treatment Not on file documented as of this encounter Visit Diagnoses Not on filedocumented in this encounter Care Teams Director Of Early Childhood Education Relationship Specialty Start Date End Date Jeffy Negrete MD [address] [facility] [address] [place] [address] PCP - General Family Practice 01/07/24 documented as of this encounter
--- OUTSIDE RECORDS SUMMARY | 2024-11-11 18:44 | XMS_ITS | Encounter Summary ---
Author Organization [facility] Address [address] [place] [address] Care Team Providers Care Development Director Name Role Phone Jeffy Negrete MD Primary Care Provider +1 -[phone] Encounter Details Date Type Department Care Team (Latest Contact Info) Description 08/26/2007 Outpatient Historical [facility] Eleanor Cain MD NO ADDRESS ON FILE Other Screening Mammogram Social History Tobacco Use Types Packs/Day Years Used Date Smoking Tobacco: Never Assessed Comments Unknown Sex and Gender Information Value Date Recorded Sex Assigned at Not on file Legal Sex Female 3:32 AM SWATCH PASTER Gender Identity Not on file Sexual Orientation Not on file documented as of this encounter Plan of Treatment Not on file documented as of this encounter Procedures Procedure Name Priority Date/Time Associated Diagnosis Comments MAMMO SCREEN BILAT W OR WO CAD Timed Study 08/26/2007 10:57 AM CDT documented in this encounter Results * MAMMO DIGITAL SCREEN BILAT (08/26/2007 10:57 AM CDT) Anatomical Region Laterality Modality Breast Bilateral Other 08/26/2007 10:5 7 AM CDT Narrative 08/26/2007 4:23 PM CDT [address] [address] Admit Date: 08/26/2007 BLESSING FITCH Sex: F Admit Prov: ELEANOR SAMUELS Date: 1950 Primary Care Prov: ELEANOR SAMUELS CMRN: [id number] Room: [facility] SSN: [id number] IMAGING SERVICES Ordering Prov: ELEANOR SAMUELS Accession Number: [id number] Interpretation BILATERAL SCREENING DIGITAL MAMMOGRAMS WITH COMPUTER ASSISTED DIAGNOSIS 08/26/2007 History: Annual screening study. FINDINGS: The parenchyma is very dense bilaterally. This lowers the sensitivity of mammography in detecting disease. There is no mass, malignant calcification, lymphadenopathy, architectural distortion or other sign of malignancy. No change since 05/2006. The films were reviewed using the CAD system. SUMMARY: Dense mammary parenchyma. No mammographic evidence of malignancy. Overall assessment: BIRADS category 1 - Negative Assessment BIRADS: 1-Negative Recommendation: Normal interval follow-up Dictated by: RUSSELL DUGGAN Electronically signed by: RUSSELL DUGGAN 08/26/2007 16:23 Transcribed: 08/26/2007 16:19 AMK Procedure Note Russell Duggan MD - 08/26/2007 [facility] [address] [place], [place] [address] Admit Date: 08/26/2007 CONSTANTINEBLESSING Sex: F Admit Prov: ELEANOR SAMUELS Date: 1950 Primary Care Prov: ELEANOR SAMUELS CMRN: [id number] Room: [facility] SSN: [id number] IMAGING SERVICES Ordering Prov: ELEANOR SAMUELS Interpretation BILATERAL SCREENING DIGITAL MAMMOGRAMS WITH COMPUTER ASSISTEDDIAGNOSIS 08/26/2007 History: Annual screening study. FINDINGS: The parenchyma is very dense bilaterally. This lowersthe sensitivity of mammography in detecting disease. There is no mass, malignant calcification, lymphadenopathy, architectural distortion orother sign of malignancy. No change since 05/2006. The films were reviewedusing the CAD system. SUMMARY: Dense mammary parenchyma. No mammographic evidence of malignancy. Overall assessment: BIRADS category 1 - Negative Assessment BIRADS: 1-Negative Recommendation: Normal interval follow-up Dictated by: RUSSELL DUGGAN Electronically signed by: RUSSELL DUGGAN 08/26/2007 16:23 Transcribed: 08/26/2007 16:19 AMK Eleanor Samuels MD MAMMO ORDERABLES Final Result documented in this encounter Visit Diagnoses Diagnosis Other screening mammogram documented in this encounter Care Teams Development Director Relationship Specialty Start Date End Date Jeffy Negrete MD [address] [phone] PCP - General Family Practice 01/07/24 documented as of this encounter
--- OUTSIDE RECORDS SUMMARY | 2024-11-11 18:44 | XMS_ITS | Encounter Summary ---
Author Organization [employer] [facility] Address [address] [place] [address] Care Team Providers Care Manager Of Procurement Name Role Phone Jeffy Negrete MD Primary Care Provider +1 -[phone] Encounter Details Date Type Department Care Team (Late st Contact Info) Description 08/11/2002 Outpatient Historical [facility], [address] Yun Dior MD [address] [facility] [address] [address] URIN TRACT INFECTION NOS (Primary Dx) Social History Tobacco Use Types Packs/Day Years Used Date Smoking Tobacco: Never Assessed Comments Unknown Sex and Gender Information Value Date Recorded Sex Assigned at Not on file Legal Sex Female 3:32 AM FIRE PREVENTION CAPTAIN Gender Identity Not on file Sexual Orientation Not on file documented as of this encounter Plan of Treatment Not on file documented as of this encounter Visit Diagnoses Diagnosis Urinary tract infection, site not specified- Primary documented in this encounter Care Teams Manager Of Procurement Relationship Specialty Start Date End Date Jeffy Negrete MD [address] [place] [address] PCP - General Family Practice 01/07/24 documented as of this encounter
--- OUTSIDE RECORDS SUMMARY | 2024-11-11 18:44 | XMS_ITS | Encounter Summary ---
Author Organization [facility] Address [address] [place] [address] Care Team Providers Care Commodities Manager Name Role Phone Jeffy Negrete MD Primary Care Provider +1 -[phone] Encounter Details Date Type Department Care Team (Latest Contact Info) Description 11/11/2002 Outpatient Historical [facility] Eleanor Frost MD NO ADDRESS ON FILE HYPERLIPIDEMIA NEC/NOS (Primary Dx) Social History Tobacco Use Types Packs/Day Years Used Date Smoking Tobacco: Never Assessed Comments Unknown Sex and Gender Information Value Date Recorded Sex Assigned at Not on file Legal Sex Female 3:32 AM SAS BI DEVELOPER Gender Identity Not on file Sexual Orientation Not on file documented as of this encounter Plan of Treatment Not on file documented as of this encounter Visit Diagnoses Diagnosis Other and unspecified hyperlipidemia- Primary documented in this encounter Care Teams Commodities Manager Relationship Specialty Start Date End Date Jeffy Negrete MD [address] [facility] [address] [place] [phone] PCP - General Family Practice 01/07/24 documented as of this encounter
--- OUTSIDE RECORDS SUMMARY | 2024-11-11 18:44 | XMS_ITS | Encounter Summary ---
Author Organization [facility] Address [address] [place] [address] Care Team Providers Care Gear Tooth Grinding Machine Operator Name Role Phone Jeffy Negrete MD Primary Care Provider +1 -[phone] Encounter Details Date Type Department Care Team (Latest Contact Info) Description 08/07/2005 Outpatient Historical [facility] Medicine [address] [place] [address] Eleanor Foley MD NO ADDRESS ON FILE Screening for Diabetes Mellitus (Primary Dx) Social History Tobacco Use Types Packs/Day Years Used Date Smoking Tobacco: Never Assessed Comments Unknown Sex and Gender Information Value Date Recorded Sex Assigned at Not on file Legal Sex Female 3:32 AM FRUIT STUFFER Gender Identity Not on file Sexual Orientation Not on file documented as of this encounter Plan of Treatment Not on file documented as of this encounter Procedures Procedure Name Priority Date/Time Associated Diagnosis Comments ALT Routine 08/07/2005 8:13 AM CDT AST Routine 08/07/2005 8:13 AM CDT LIPID PANEL Routine 08/07/2005 8:13 AM CDT documented in this encounter Results * ALT (08/07/2005 8:13 AM CDT) ALT 30 0 - 31 U/L INTERFACE SYSTEM 08/07/2005 8:13 AM CDT us Eleanor Foley MD CHEMISTRY ORDERABLES Final Resul t INTERFACE SYSTEM Refer to clinic/hospital department * AST (08/07/2005 8:13 AM CDT) AST 30 12 - 32 U/L INTERFAC E SYSTEM 08/07/2005 8:13 AM CDT Eleanor Foley MD CHEMISTRY ORDERABLES Final Resul t Performing Organization Address City/[facility] [employer] Phone Number INTERFACE SYSTEM Refer to clinic/hospital department * (ABNORMAL) LIPID PANEL (08/07/2005 8:13 AM CDT) CHOLESTEROL 154 100 - 199 mg/dL INTERFACE SYSTEM TRIGLYCERIDE 151(H) 10 - 149 mg/dL INTERFACE SYSTEM HDL 59 40 - 59 mg/dL INTERFACE SYSTEM CHOL/HDL RATIO 2.6 2.0 - 5.0 INTER FACE SYSTEM LDL CALCULATED 65 <=99 mg/dL INTERFACE SYSTEM LIPID PANEL COMMENT See Below INTERFACE SYSTEM Comment: The adult ATP and pediatric NCEP classifications for lipids are available on the [facility] at: [email or web address] Select: Lab Policies and Procedures Select: Reference Ranges - Lipids 08/07/2005 8:13 AM CDT us Eleanor Foley MD CHEMISTRY ORDERABLES Final Resul t Performing Organization Address City/[facility] [employer] Phone Number INTERFACE SYSTEM Refer to clinic/hospital department documented in this encounter Visit Diagnoses Diagnosis Screening for diabetes mellitus- Primary documented in this encounter Care Teams Gear Tooth Grinding Machine Operator Relationship Specialty Start Date End Date Jeffy Negrete MD [address] [facility] [address] [place] [address] PCP - General Family Practice 01/07/24 documented as of this encounter
--- OUTSIDE RECORDS SUMMARY | 2024-11-11 18:45 | XMS_ITS | Encounter Summary ---
Author Organization [facility] Address [address] [place] [address] Care Team Providers Care House Decorator Name Role Phone Jeffy Negrete MD Primary Care Provider +1 -[phone] Encounter Details Date Type Department Care Team (Late st Contact Info) Description 10/12/2005 Emergency [facility] Festus Mckeon MD NO ADDRESS ON FILE Er, Authorized P NO ADDRESS ON FILE Lumbago (Primary Dx) Social History Tobacco Use Types Packs/Day Years Used Date Smoking Tobacco: Never Assessed Comments Unknown Sex and Gender Information Value Date Recorded Sex Assigned at Not on file Legal Sex Female 3:32 AM FRAME FEEDER Gender Identity Not on file Sexual Orientation Not on file documented as of this encounter Plan of Treatment Not on file documented as of this encounter Visit Diagnoses Diagnosis Lumbago- Primary documented in this encounter Care Teams House Decorator Relationship Specialty Start Date End Date Jeffy Negrete MD [address] [facility] [address] [place] [address] PCP - General Family Practice 01/07/24 documented as of this encounter
--- OUTSIDE RECORDS SUMMARY | 2024-11-11 18:45 | XMS_ITS | Encounter Summary ---
Author Organization [facility] Address 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) Social History Tobacco Use Types Packs/Day Years Used Date Smoking Tobacco: Never Assessed Comments Unknown Sex and Gender Information Value Date Recorded Sex Assigned at Not on file Legal Sex Female 3:32 AM FABRIC WORKER FOREMAN Gender Identity Not on file Sexual Orientation Not on file documented as of this encounter Plan of Treatment Not on file documented as of this encounter Visit Diagnoses Diagnosis Thyrotoxicosis without mention of goiter or other cause, without mention of thyrotoxic crisis or storm- Primary documented in this encounter Care Teams Farm Machinery Engine Mechanic Relationship Specialty Start Date End Date Jeffy Negrete MD [address] [facility] [address] [place] [address] PCP - General Family Practice 01/07/24 documented as of this encounter
--- OUTSIDE RECORDS SUMMARY | 2024-11-11 18:45 | XMS_ITS | Encounter Summary ---
Author Organization [facility] Address [address] [place] [address] Care Team Providers Care Plastics Factory Worker Name Role Phone Jeffy Negrete MD Primary Care Provider +1 [phone] Encounter Details Date Type Department Care Team (Latest Contact Info) Description 05/23/1998 Outpatient Historical HIS [facility] Dani Smith MD [address] [place] [address] Unspecified hypothyroidism (Primary Dx) Social History Tobacco Use Types Packs/Day Years Used Date Smoking Tobacco: Never Assessed Comments Unknown Sex and Gender Information Value Date Recorded Sex Assigned at Not on file Legal Sex Female 3:32 AM INFECTION CONTROL MANAGER Gender Identity Not on file Sexual Orientation Not on file documented as of this encounter Plan of Treatment Not on file documented as of this encounter Visit Diagnoses Diagnosis Unspecified hypothyroidism- Primary documented in this encounter Care Teams Plastics Factory Worker Relationship Specialty Start Date End Date Jeffy Negrete MD [address] [facility] [address] [place] [address] PCP - General Family Practice 01/07/24 documented as of this encounter
--- OUTSIDE RECORDS SUMMARY | 2024-11-11 18:45 | XMS_ITS | Encounter Summary ---
Author Organization [facility] Address [address] [place] [address] Care Team Providers Care Business Analysis Specialist Name Role Phone Jeffy Negrete MD Primary Care Provider +1 [phone] Encounter Details Date Type Department Care Team (Late st Contact Info) Description 07/05/2000 Outpatient Historical [place] [address] [place] [address] Nonspecific (abnormal) findings on radiological and other examination of genitourinary organs (Primary Dx) Social History Tobacco Use Types Packs/Day Years Used Date Smoking Tobacco: Never Assessed Comments Unknown Sex and Gender Information Value Date Recorded Sex Assigned at Not on file Legal Sex Female 3:32 AM TIRE SETTER Gender Identity Not on file Sexual Orientation Not on file documented as of this encounter Plan of Treatment Not on file documented as of this encounter Visit Diagnoses Diagnosis Nonspecific (abnormal) findings on radiological and other examination of genitourinary organs- Primary documented in this encounter Care Teams Business Analysis Specialist Relationship Specialty Start Date End Date Jeffy Negrete MD [address] [place] [address] PCP - General Family Practice 01/07/24 documented as of this encounter
--- OUTSIDE RECORDS SUMMARY | 2024-11-11 18:45 | XMS_ITS | Encounter Summary ---
Author Organization [facility] Address [address] [place] [address] Care Team Providers Care Health Service Worker Name Role Phone Jeffy Negrete MD Primary Care Provider +1 [phone] Encounter Details Date Type Department Care Team (Late st Contact Info) Description 04/07/2004 Outpatient Historical [facility] Medicine [address] [place] [address] Eleanor Foley MD NO ADDRESS ON FILE Social History Tobacco Use Types Packs/Day Years Used Date Smoking Tobacco: Never Assessed Comments Unknown Sex and Gender Information Value Date Recorded Sex Assigned at Not on file Legal Sex Female 3:32 AM SLABBER LIGHT Gender Identity Not on file Sexual Orientation Not on file documented as of this encounter Plan of Treatment Not on file documented as of this encounter Visit Diagnoses Not on filedocumented in this encounter Care Teams Health Service Worker Relationship Specialty Start Date End Date Jeffy Negrete MD [address] [facility] 60 [place] [address] PCP - General Family Practice 01/07/24 documented as of this encounter
--- OUTSIDE RECORDS SUMMARY | 2024-11-11 18:45 | XMS_ITS | Encounter Summary ---
Author Organization [facility] Address [address] [place] [address] Care Team Providers Care Block Saw Operator Name Role Phone Jeffy Negrete MD Primary Care Provider +1 [phone] Encounter Details Date Type Department Care Team (Latest Contact Info) Description 04/18/2006 Outpatient Historical [facility] Family Medicine [address] [place] [address] Eleanor Foley MD NO ADDRESS ON FILE Other and Unspecified Hyperlipidemia (Primary Dx) Social History Tobacco Use Types Packs/Day Years Used Date Smoking Tobacco: Never Assessed Comments Unknown Sex and Gender Information Value Date Recorded Sex Assigned at Not on file Legal Sex Female 3:32 AM MOLDING MACHINE OPERATOR HELPER Gender Identity Not on file Sexual Orientation Not on file documented as of this encounter Plan of Treatment Not on file documented as of this encounter Procedures Procedure Name Priority Date/Time Associated Diagnosis Comments ALT Routine 04/18/2006 8:32 AM MOLDING MACHINE OPERATOR HELPER AST Routine 04/18/2006 8:32 AM MOLDING MACHINE OPERATOR HELPER TSH Routine 04/18/2006 8:32 AM MOLDING MACHINE OPERATOR HELPER GLUCOSE LEVEL Routine 04/18/2006 8:32 AM MOLDING MACHINE OPERATOR HELPER LIPID PANEL Routine 04/18/2006 8:32 AM MOLDING MACHINE OPERATOR HELPER documented in this encounter Results * TSH (04/18/2006 8:32 AM MOLDING MACHINE OPERATOR HELPER) TSH 0.56 0.27 - 4.20 uU/mL INTERFACE SYSTEM 04/18/2006 8:32 AM MOLDING MACHINE OPERATOR HELPER Eleanor Foley MD CHEMISTRY ORDERABLES Edited Performing Organization Address City/State/[facility] Co de Phone Number INTERFACE SYSTEM Refer to clinic/hospital department * ALT (04/18/2006 8:32 AM MOLDING MACHINE OPERATOR HELPER) ALT 16 0 - 31 U/L INTERFACE SYSTEM 04/18/2006 8:32 AM MOLDING MACHINE OPERATOR HELPER Eleanor Foley MD CHEMISTRY ORDERABLES Edited Performing Organization Address City/State/[facility] Co de Phone Number INTERFACE SYSTEM Refer to clinic/hospital department * AST (04/18/2006 8:32 AM MOLDING MACHINE OPERATOR HELPER) AST 19 12 - 32 U/L INTERFAC E SYSTEM 04/18/2006 8:32 AM MOLDING MACHINE OPERATOR HELPER Eleanor Foley MD CHEMISTRY ORDERABLES Edited Performing Organization Address City/[facility] de Phone Number INTERFACE SYSTEM Refer to clinic/hospital department * GLUCOSE LEVEL (04/18/2006 8:32 AM MOLDING MACHINE OPERATOR HELPER) GLUCOSE 83 65 - 99 mg/dL INTERFACE SYSTEM 04/18/2006 8:32 AM MOLDING MACHINE OPERATOR HELPER Eleanor Foley MD CHEMISTRY ORDERABLES Edited Performing Organization Address City/[facility] de Phone Number INTERFACE SYSTEM Refer to clinic/hospital department * (ABNORMAL) LIPID PANEL (04/18/2006 8:32 AM MOLDING MACHINE OPERATOR HELPER) CHOLESTEROL 239(H) 100 - 199 mg/dL INTERFACE SYSTEM TRIGLYCERIDE 190(H) 10 - 149 mg/dL INTERFACE SYSTEM HDL 61(H) 40 - 59 mg/dL INTERFACE SYSTEM CHOL/HDL RATIO 3.9 2.0 - 5.0 INTER FACE SYSTEM LDL CALCULATED 140(H) <=99 mg/dL INTERFACE SYSTEM LIPID PANEL COMMENT See Below INTERFACE SYSTEM Comment: The adult ATP and pediatric NCEP classifications for lipids are available on the [facility] Intranet at: [email or web address] Select: Lab Policies and Procedures Select: Reference Ranges - Lipids 04/18/2006 8:32 AM MOLDING MACHINE OPERATOR HELPER us Eleanor Foley MD CHEMISTRY ORDERABLES Edited INTERFACE SYSTEM Refer to clinic/hospital department documented in this encounter Visit Diagnoses Diagnosis Other and unspecified hyperlipidemia- Primary documented in this encounter Care Teams Block Saw Operator Relationship Specialty Start Date End Date Jeffy Negrete MD [address] [address] PCP - General Family Practice 01/07/24 documented as of this encounter
--- OUTSIDE RECORDS SUMMARY | 2024-11-11 18:45 | XMS_ITS | Encounter Summary ---
Author Organization [facility] Address [address] [place] [address] Care Team Providers Care Armored Car Driver Name Role Phone Jeffy Negrete MD Primary Care Provider +1 [phone] Encounter Details Date Type Department Care Team (Latest Contact Info) Description 05/24/2004 Outpatient Historical HIS [facility] Garth Cazares SCREENING MAMM-MAILG NEOPL-OTHER (Primary Dx) Social History Tobacco Use Types Packs/Day Years Used Date Smoking Tobacco: Never Assessed Comments Unknown Sex and Gender Information Value Date Recorded Sex Assigned at Not on file Legal Sex Female 3:32 AM DIRECTOR PERSONAL Gender Identity Not on file Sexual Orientation Not on file documented as of this encounter Plan of Treatment Not on file documented as of this encounter Visit Diagnoses Diagnosis Other screening mammogram- Primary documented in this encounter Care Teams Armored Car Driver Relationship Specialty Start Date End Date Jeffy Negrete MD [address] [facility] [address] [place] [phone] PCP - General Family Practice 01/07/24 documented as of this encounter
--- OUTSIDE RECORDS SUMMARY | 2024-11-11 18:45 | XMS_ITS | Encounter Summary ---
Author Organization [facility] Address [address] [place] [address] Care Team Providers Care Soccer Commentator Name Role Phone Jeffy Negrete MD Primary Care Provider +1 [phone] Encounter Details Date Type Department Care Team (Latest Contact Info) Description 06/07/2006 Outpatient Historical [facility] Eleanor Foley MD NO ADDRESS ON FILE Special Screening for Osteoporosis (Primary Dx) Social History Tobacco Use Types Packs/Day Years Used Date Smoking Tobacco: Never Assessed Comments Unknown Sex and Gender Information Value Date Recorded Sex Assigned at Not on file Legal Sex Female 3:32 AM SPANISH SPEAKING NANNY Gender Identity Not on file Sexual Orientation Not on file documented as of this encounter Plan of Treatment Not on file documented as of this encounter Visit Diagnoses Diagnosis Special screening for osteoporosis- Primary documented in this encounter Care Teams Soccer Commentator Relationship Specialty Start Date End Date Jeffy Negrete MD [address] [facility] [address] [place] [address] PCP - General Family Practice 01/07/24 documented as of this encounter
--- OUTSIDE RECORDS SUMMARY | 2024-11-11 18:45 | XMS_ITS | Encounter Summary ---
Author Organization [facility] Address [address] [place] [address] Care Team Providers Care Auto Damage Estimator Name Role Phone Jeffy Negrete MD Primary Care Provider +1 [phone] Encounter Details Date Type Department Care Team (Late st Contact Info) Description 12/31/2005 Outpatient Historical [facility] [address] [place] [address] Eleanor Foley MD NO ADDRESS ON FILE Social History Tobacco Use Types Packs/Day Years Used Date Smoking Tobacco: Never Assessed Comments Unknown Sex and Gender Information Value Date Recorded Sex Assigned at Not on file Legal Sex Female 3:32 AM ACCREDITATION COORDINATOR Gender Identity Not on file Sexual Orientation Not on file documented as of this encounter Last Filed Vital Signs Vital Sign Reading Time Taken Comments Blood Pressure 110/68 12/31/2005 10:00 AM CDT Pulse 58 12/31/2005 10:00 AM CDT Temperature 36.1 C (97 F) 12/31/2005 10:00 AM CDT Respiratory Rate - - Oxygen Saturation - - Inhaled Oxygen Concentration - - Weight 6.861 kg (15 lb 2 oz) 12/31/2005 10:00 AM CDT Height - - Body Mass Index - - documented in this encounter Plan of Treatment Not on file documented as of this encounter Visit Diagnoses Not on filedocumented in this encounter Care Teams Auto Damage Estimator Relationship Specialty Start Date End Date Jeffy Negrete MD [address] [facility] 60 [place] [address] PCP - General Family Practice 01/07/24 documented as of this encounter
--- OUTSIDE RECORDS SUMMARY | 2024-11-11 18:45 | XMS_ITS | Encounter Summary ---
Author Organization [facility] Address [address] [place] [address] Care Team Providers Care Dental Financial Coordinator Name Role Phone Jeffy Negrete MD Primary Care Provider +1 [phone] Encounter Details Date Type Department Care Team (Latest Contact Info) Description 05/04/2004 Outpatient Historical HIS [facility] PABLO Foley, Eleanor Cheung MD NO ADDRESS ON FILE HYPERLIPIDEMIA NEC/NOS (Primary Dx) Social History Tobacco Use Types Packs/Day Years Used Date Smoking Tobacco: Never Assessed Comments Unknown Sex and Gender Information Value Date Recorded Sex Assigned at Not on file Legal Sex Female 3:32 AM VAULT ATTENDANT Gender Identity Not on file Sexual Orientation Not on file documented as of this encounter Plan of Treatment Not on file documented as of this encounter Procedures Procedure Name Priority Date/Time Associated Diagnosis Comments TSH REFLEXIVE Routine 05/04/2004 9:52 AM VAULT ATTENDANT T4 FREE Routine 05/04/2004 9:52 AM VAULT ATTENDANT GLUCOSE LEVEL Routine 05/04/2004 9:52 AM VAULT ATTENDANT HEPATIC FUNCTION PANEL Routine 05/04/2004 9:52 AM VAULT ATTENDANT LIPID PANEL Routine 05/04/2004 9:52 AM VAULT ATTENDANT documented in this encounter Results * GLUCOSE LEVEL (05/04/2004 9:52 AM VAULT ATTENDANT) GLUCOSE 89 65 - 109 mg/dL INTERFACE SYSTEM 05/04/2004 9:52 AM VAULT ATTENDANT us Eleanor Foley MD CHEMISTRY ORDERABLES Final Resul t INTERFACE SYSTEM Refer to clinic/hospital department * T4 FREE (05/04/2004 9:52 AM VAULT ATTENDANT) T4 FREE 1.3 0.9 - 1.7 ng/dL INTERFACE SYSTEM 05/04/2004 9:52 AM VAULT ATTENDANT Eleanor Foley MD CHEMISTRY ORDERABLES Final Resul t Performing Organization Address [facility] Phone Number INTERFACE SYSTEM Refer to clinic/hospital department * (ABNORMAL) TSH REFLEXIVE (05/04/2004 9:52 AM VAULT ATTENDANT) TSH 6.31(H) 0.27 - 4.20 uU/mL INTERFACE SYSTEM 05/04/2004 9:52 AM VAULT ATTENDANT Eleanor Foley MD CHEMISTRY ORDERABLES Final Resul t Performing Organization Address [facility] Phone Number INTERFACE SYSTEM Refer to clinic/hospital department * HEPATIC FUNCTION PANEL (05/04/2004 9:52 AM VAULT ATTENDANT) AST 26 12 - 32 U/L INTERFACE SYSTEM ALKALINE PHOSPHATASE 67 35 - 104 U/L INTERFACE SYSTEM BILIRUBIN TOTAL 0.6 0.2 - 1.0 mg/dL INTERFACE SYSTEM ALBUMIN 4.5 3.4 - 4.8 g/dL INTERFACE SYSTEM TOTAL PROTEIN 8.1 6.3 - 8.6 g/dL INTERFACE SYSTEM ALT 29 0 - 31 U/L INTERFACE SYSTEM BILIRUBIN DIRECT 0.1 0.0 - 0.3 mg/dL INTERFACE SYSTEM 05/04/2004 9:52 AM VAULT ATTENDANT Eleanor Foley MD CHEMISTRY ORDERABLES Final Resul t Performing Organization Address [facility] [place] Phone Number INTERFACE SYSTEM Refer to clinic/hospital department * (ABNORMAL) LIPID PANEL (05/04/2004 9:52 AM VAULT ATTENDANT) CHOLESTEROL 199 100 - 199 mg/dL INTERFACE SYSTEM TRIGLYCERIDE 181(H) 10 - 149 mg/dL INTERFACE SYSTEM HDL 67(H) 40 - 59 mg/dL INTERFACE SYSTEM LDL CALCULATED 96 <=99 mg/dL INTERFACE SYSTEM CHOL/HDL RATIO 3.0 2.0 - 5.0 INTER FACE SYSTEM Comment:See interpretive jeyson a section for risk classifications. LIPID PANEL COMMENT See below INTERFACE SYSTEM Comment: Adult ATP III Classifications: Cholesterol (mg/dL) Triglyceride (mg/dL) Desirable <200 Normal <150 Borderline 200 - 239 Borderline High 150 - 199 High >=240 High 200 - 499 Very High >=500 HDL Cholesterol (mg/dL) LDL (mg/dL) Low (increased risk) <40 Optimal <100 High (reduced risk) >=60 Near or above optimal 100 - 129 Borderline 130 - 159 High 160 - 189 Very High >=190 LDL calculation is not accurate if Triglycerides are greater than 400 mg /dL Pediatric NCEP Classifications: Cholesterol(<20 years),(mg/dL) Triglyceride Desirable <170 Pediatric classification Borderline 170 - 199 not defined. High >=200 HDL (<5 years) LDL (mg/dL) No Reference Range Established Desirable <110 Borderline 110 - 129 High >=130 05/04/2004 9:52 AM VAULT ATTENDANT us Eleanor Foley MD CHEMISTRY ORDERABLES Final Resul t INTERFACE SYSTEM Refer to clinic/hospital department documented in this encounter Visit Diagnoses Diagnosis Other and unspecified hyperlipidemia- Primary documented in this encounter Care Teams Dental Financial Coordinator Relationship Specialty Start Date End Date Jeffy Negrete MD [address] [facility] [address] [place] [address] PCP - General Family Practice 01/07/24 documented as of this encounter
--- OUTSIDE RECORDS SUMMARY | 2024-11-11 18:45 | XMS_ITS | Encounter Summary ---
Author Organization [facility] Address [address] [place] [address] Care Team Providers Care Director Investor Relations Name Role Phone Jeffy Negrete MD Primary Care Provider +1 [phone] Encounter Details Date Type Department Care Team (Late st Contact Info) Description 05/02/2005 Outpatient Historical [facility] [address] [place] [address] Eleanor Foley MD NO ADDRESS ON FILE Social History Tobacco Use Types Packs/Day Years Used Date Smoking Tobacco: Never Assessed Comments Unknown Sex and Gender Information Value Date Recorded Sex Assigned at Not on file Legal Sex Female 3:32 AM GENERATOR MAN Gender Identity Not on file Sexual Orientation Not on file documented as of this encounter Last Filed Vital Signs Vital Sign Reading Time Taken Comments Blood Pressure 104/66 05/02/2005 9:00 AM GENERATOR MAN Pulse 81 05/02/2005 9:00 AM GENERATOR MAN Temperature 35.9 C (96.6 F) 05/02/2005 9:00 AM GENERATOR MAN Respiratory Rate - - Oxygen Saturation - - Inhaled Oxygen Concentration - - Weight 71.9 kg (158 lb 8 oz) 05/02/2005 9:00 AM GENERATOR MAN Height - - Body Mass Index - - documented in this encounter Plan of Treatment Not on file documented as of this encounter Visit Diagnoses Not on filedocumented in this encounter Care Teams Director Investor Relations Relationship Specialty Start Date End Date Jeffy Negrete MD [address] [facility] [address] [place] [address] PCP - General Family Practice 01/07/24 documented as of this encounter
--- OUTSIDE RECORDS SUMMARY | 2024-11-11 18:45 | XMS_ITS | Encounter Summary ---
Author Organization [facility] Address [address] [place] [address] Care Team Providers Care Apprentice Pattern Maker Name Role Phone Jeffy Negrete MD Primary Care Provider +1 -[phone] Encounter Details Date Type Department Care Team (Late st Contact Info) Description 05/15/2005 Orders Only [facility] Medicine [address] [place] [address] Eleanor Foley MD NO ADDRESS ON FILE Social History Tobacco Use Types Packs/Day Years Used Date Smoking Tobacco: Never Assessed Comments Unknown Sex and Gender Information Value Date Recorded Sex Assigned at Not on file Legal Sex Female 3:32 AM HARDWOOD FINISHER Gender Identity Not on file Sexual Orientation Not on file documented as of this encounter Progress Notes * Eleanor Foley MD - 12/25/2007 4:15 PM CDT TIME:04:15 pm PATIENT`S HOME PHONE: PATIENT`S WORK PHONE: PATIENT`S INSURANCE: [facility] WHO TOOK THE CALL: Jerica Rodriguez M GENERAL INFORMATION ALTERNATIVE PHONE NUMBER: [phone] WHO CALLED: Patient`s spouse called. SECTION 1: REQUESTED ACTION zahra 05/15/05 at 04:17 pm: MEDICATION REQUEST: Patient requests a refill.Pt's is requesting a refill on pt's transdermal patch. He states Climara is no longer covered by his mail order pharmacy but the generic Estradiol is covered. Pt would like to pickers material handlers written Rx on Saturday for 90 day supply with refills. Thank you! DOCTOR`S RESPONSE: fiorella 05/15/05 at 09:41 pm MEDICATIONS: Call in to Pharmacy ESTRADIOL TRANSDERMAL PATCH WEEKLY 0.05 MG/24HR, apply weekly, 13 Dispensed, 3 Fills, status: NEW PRESCRIPTION, 05/15/2005. CLIMARA TRANSDERMAL PATCH WEEKLY 0.05 MG/24HR PATCHES, apply weekly, 4 Dispensed, 11 Fills, status:DISCONTINUED, 05/15/2005. printed FINAL ACTION: diana 05/16/05 at 09:26 am rx to front Electronically Signed by: Alexsandra Herrera LPN on Monday, May 16, 2005 * Eleanor Foley MD - 12/25/2007 4:15 PM CDT TIME:04:16 pm PATIENT`S HOME PHONE: PATIENT`S WORK PHONE: PATIENT`S INSURANCE: [employer] [facility] WHO TOOK THE CALL: Jerica Rodriguez M documented in this encounter Plan of Treatment Not on file documented as of this encounter Visit Diagnoses Not on filedocumented in this encounter Care Teams Apprentice Pattern Maker Relationship Specialty Start Date End Date Jeffy Negrete MD [address] [address] PCP - General Family Practice 01/07/24 documented as of this encounter
--- OUTSIDE RECORDS SUMMARY | 2024-11-11 18:45 | XMS_ITS | Encounter Summary ---
Author Organization [facility] Address [address] [place] [address] Care Team Providers Care Director Organizational Name Role Phone Jeffy Negrete MD Primary Care Provider +1 -[phone] Encounter Details Date Type Department Care Team (Late st Contact Info) Description 01/17/2007 Outpatient Historical [facility] [place] [address] [place] [address] [place] [address] [place] [address] [facility] [address] [place] [address] Social History Tobacco Use Types Packs/Day Years Used Date Smoking Tobacco: Never Assessed Comments Unknown Sex and Gender Information Value Date Recorded Sex Assigned at Not on file Legal Sex Female 3:32 AM HISTOLOGIC AIDE Gender Identity Not on file Sexual Orientation Not on file documented as of this encounter Plan of Treatment Not on file documented as of this encounter Visit Diagnoses Not on filedocumented in this encounter Care Teams Director Organizational Relationship Specialty Start Date End Date Jeffy Negrete MD [address] [facility] 60 [place] [address] PCP - General Family Practice 01/07/24 documented as of this encounter
--- OUTSIDE RECORDS SUMMARY | 2024-11-11 18:45 | XMS_ITS | Encounter Summary ---
Author Organization [facility] Address [address] [place] [address] Care Team Providers Care Gas Station Cashier Name Role Phone Jeffy Negrete MD Primary Care Provider +1 [phone] Encounter Details Date Type Department Care Team (Late st Contact Info) Description 10/18/2004 Outpatient Historical [facility] Medicine [address] [place] [address] Josh Sadler MD NO ADDRESS ON FILE Social History Tobacco Use Types Packs/Day Years Used Date Smoking Tobacco: Never Assessed Comments Unknown Sex and Gender Information Value Date Recorded Sex Assigned at Not on file Legal Sex Female 3:32 AM EMBEDDED SOFTWARE DEVELOPMENT ENGINEER Gender Identity Not on file Sexual Orientation Not on file documented as of this encounter Last Filed Vital Signs Vital Sign Reading Time Taken Comments Blood Pressure 112/71 10/18/2004 10:30 AM CDT Pulse 69 10/18/2004 10:30 AM CDT Temperature 36.8 C (98.2 F) 10/18/2004 10:30 AM CDT Respiratory Rate - - Oxygen Saturation - - Inhaled Oxygen Concentration - - Weight 69 kg (152 lb 2 oz) 10/18/2004 10:30 AM C DT Height - - Body Mass Index - - documented in this encounter Plan of Treatment Not on file documented as of this encounter Visit Diagnoses Not on filedocumented in this encounter Care Teams Gas Station Cashier Relationship Specialty Start Date End Date Jeffy Negrete MD [address] [facility] [address] [place] [address] PCP - General Family Practice 01/07/24 documented as of this encounter
--- OUTSIDE RECORDS SUMMARY | 2024-11-11 18:45 | XMS_ITS | Encounter Summary ---
Author Organization [facility] Address [address] [place] [address] Care Team Providers Care Wharf Labourer Name Role Phone Jeffy Negrete MD Primary Care Provider +1 [phone] Encounter Details Date Type Department Care Team (Latest Contact Info) Description 04/19/2005 Outpatient Historical [facility] Eleanor Frost MD NO ADDRESS ON FILE HYPOTHYROIDISM NOS (Primary Dx) Social History Tobacco Use Types Packs/Day Years Used Date Smoking Tobacco: Never Assessed Comments Unknown Sex and Gender Information Value Date Recorded Sex Assigned at Not on file Legal Sex Female 3:32 AM COIN MACHINE COLLECTOR SUPERVISOR Gender Identity Not on file Sexual Orientation Not on file documented as of this encounter Plan of Treatment Not on file documented as of this encounter Procedures Procedure Name Priority Date/Time Associated Diagnosis Comments TSH Routine 04/19/2005 11:03 AM COIN MACHINE COLLECTOR SUPERVISOR documented in this encounter Results * TSH (04/19/2005 11:03 AM COIN MACHINE COLLECTOR SUPERVISOR) TSH 0.71 0.27 - 4.20 uU/mL INTERFACE SYSTEM 04/19/2005 11:0 3 AM COIN MACHINE COLLECTOR SUPERVISOR us Eleanor Foley MD CHEMISTRY ORDERABLES Final Resul t INTERFACE SYSTEM Refer to clinic/hospital department documented in this encounter Visit Diagnoses Diagnosis Unspecified hypothyroidism- Primary documented in this encounter Care Teams Wharf Labourer Relationship Specialty Start Date End Date Jeffy Negrete MD [address] [facility] [place] [phone] PCP - General Family Practice 01/07/24 documented as of this encounter
--- OUTSIDE RECORDS SUMMARY | 2024-11-11 18:45 | XMS_ITS | Encounter Summary ---
Author Organization [facility] Address [address] [place] [address] Care Team Providers Care Sterile Process Tech Name Role Phone Jeffy Negrete MD Primary Care Provider +1 [phone] Encounter Details Date Type Department Care Team (Late st Contact Info) Description 07/18/2006 Outpatient Historical [facility] Medicine [address] [place] [address] Eleanor Foley MD NO ADDRESS ON FILE Social History Tobacco Use Types Packs/Day Years Used Date Smoking Tobacco: Never Assessed Comments Unknown Sex and Gender Information Value Date Recorded Sex Assigned at Not on file Legal Sex Female 3:32 AM HOT AIR FURNACE INSTALLER REPAIRER Gender Identity Not on file Sexual Orientation Not on file documented as of this encounter Last Filed Vital Signs Vital Sign Reading Time Taken Comments Blood Pressure 99/67 07/18/2006 3:15 PM CDT Pulse 64 07/18/2006 3:15 PM CDT Temperature 36.5 C (97.7 F) 07/18/2006 3:15 PM CDT Respiratory Rate - - Oxygen Saturation - - Inhaled Oxygen Concentration - - Weight 67.6 kg (149 lb 2 oz) 07/18/2006 3:15 PM CDT Height - - Body Mass Index 25.4 05/02/2006 2:00 PM HOT AIR FURNACE INSTALLER REPAIRER documented in this encounter Plan of Treatment Not on file documented as of this encounter Visit Diagnoses Not on filedocumented in this encounter Care Teams Sterile Process Tech Relationship Specialty Start Date End Date Jeffy Negrete MD [address] [facility] [place] [address] PCP - General Family Practice 01/07/24 documented as of this encounter
--- OUTSIDE RECORDS SUMMARY | 2024-11-11 18:45 | XMS_ITS | Encounter Summary ---
Author Organization [facility] Address [address] [place] [address] Care Team Providers Care Rotary Drum Dyer Name Role Phone Jeffy Negrete MD Primary Care Provider [phone] [phone] Encounter Details Date Type Department Care Team (Late st Contact Info) Description 06/28/2000 Outpatient Historical [facility] DEPT OF FAMILY MEDICINE Russell Maldonado MD [address] [place] [address] Social History Tobacco Use Types Packs/Day Years Used Date Smoking Tobacco: Never Assessed Comments Unknown Sex and Gender Information Value Date Recorded Sex Assigned at Not on file Legal Sex Female 3:32 AM SENIOR EXAMINER Gender Identity Not on file Sexual Orientation Not on file documented as of this encounter Plan of Treatment Not on file documented as of this encounter Visit Diagnoses Not on filedocumented in this encounter Care Teams Rotary Drum Dyer Relationship Specialty Start Date End Date Jeffy Negrete MD [address] [facility] [place] [address] PCP - General Family Practice 01/07/24 documented as of this encounter
--- OUTSIDE RECORDS SUMMARY | 2024-11-11 18:45 | XMS_ITS | Encounter Summary ---
Author Organization [facility] Address [address] [place] [address] Care Team Providers Care Boxer Operator Name Role Phone Jeffy Negrete MD Primary Care Provider +1 [phone] Encounter Details Date Type Department Care Team (Late st Contact Info) Description 09/07/2005 Outpatient Historical [facility] Medicine [address] [place] [address] Josh Sadler MD NO ADDRESS ON FILE Social History Tobacco Use Types Packs/Day Years Used Date Smoking Tobacco: Never Assessed Comments Unknown Sex and Gender Information Value Date Recorded Sex Assigned at Not on file Legal Sex Female 3:32 AM CMM INSPECTOR Gender Identity Not on file Sexual Orientation Not on file documented as of this encounter Last Filed Vital Signs Vital Sign Reading Time Taken Comments Blood Pressure 116/72 09/07/2005 10:15 AM CDT Pulse 66 09/07/2005 10:15 AM CDT Temperature 36.4 C (97.5 F) 09/07/2005 10:15 AM CDT Respiratory Rate - - Oxygen Saturation - - Inhaled Oxygen Concentration - - Weight 67.6 kg (149 lb) 09/07/2005 10:15 AM CDT Height - - Body Mass Index - - documented in this encounter Plan of Treatment Not on file documented as of this encounter Visit Diagnoses Not on filedocumented in this encounter Care Teams Boxer Operator Relationship Specialty Start Date End Date Jeffy Negrete MD [address] [facility] 60 [place] [address] PCP - General Family Practice 01/07/24 documented as of this encounter
--- OUTSIDE RECORDS SUMMARY | 2024-11-11 18:45 | XMS_ITS | Encounter Summary ---
Author Organization [facility] Address [address] [place] [address] Care Team Providers Care Soda Room Operator Name Role Phone Jeffy Negrete MD Primary Care Provider [phone] [phone] Encounter Details Date Type Department Care Team (Late st Contact Info) Description 05/03/2004 Outpatient Historical [facility] Medicine [address] [place] [address] Eleanor Foley MD NO ADDRESS ON FILE Social History Tobacco Use Types Packs/Day Years Used Date Smoking Tobacco: Never Assessed Comments Unknown Sex and Gender Information Value Date Recorded Sex Assigned at Not on file Legal Sex Female 3:32 AM TRANSPORT ENGINEER Gender Identity Not on file Sexual Orientation Not on file documented as of this encounter Plan of Treatment Not on file documented as of this encounter Visit Diagnoses Not on filedocumented in this encounter Care Teams Soda Room Operator Relationship Specialty Start Date End Date Jeffy Negrete MD [address] [facility] 60 [place] [address] PCP - General Family Practice 01/07/24 documented as of this encounter
--- OUTSIDE RECORDS SUMMARY | 2024-11-11 18:45 | XMS_ITS | Encounter Summary ---
Author Organization [facility] Address [address] [place] [address] Care Team Providers Care Manager Customer Name Role Phone Jeffy Negrete MD Primary Care Provider [phone] [phone] Encounter Details Date Type Department Care Team (Late st Contact Info) Description 05/29/2006 Outpatient Historical [facility] Medicine [address] [place] [address] Eleanor Foley MD NO ADDRESS ON FILE Social History Tobacco Use Types Packs/Day Years Used Date Smoking Tobacco: Never Assessed Comments Unknown Sex and Gender Information Value Date Recorded Sex Assigned at Not on file Legal Sex Female 3:32 AM ASSESSMENT COORDINATOR Gender Identity Not on file Sexual Orientation Not on file documented as of this encounter Last Filed Vital Signs Vital Sign Reading Time Taken Comments Blood Pressure 106/74 05/29/2006 9:15 AM CDT Pulse 73 05/29/2006 9:15 AM CDT Temperature 37.4 C (99.3 F) 05/29/2006 9:15 AM CDT Respiratory Rate - - Oxygen Saturation - - Inhaled Oxygen Concentration - - Weight 66.7 kg (147 lb 2 oz) 05/29/2006 9:15 AM CDT Height - - Body Mass Index 25.06 05/02/2006 2:00 PM ASSESSMENT COORDINATOR documented in this encounter Plan of Treatment Not on file documented as of this encounter Visit Diagnoses Not on filedocumented in this encounter Care Teams Manager Customer Relationship Specialty Start Date End Date Jeffy Negrete MD [address] [facility] [address] [place] [address] PCP - General Family Practice 01/07/24 documented as of this encounter
--- OUTSIDE RECORDS SUMMARY | 2024-11-11 18:45 | XMS_ITS | Encounter Summary ---
Author Organization [facility] Address [address] [place] [address] Care Team Providers Care Driver License Examiner Name Role Phone Jeffy Negrete MD Primary Care Provider [phone] [phone] Encounter Details Date Type Department Care Team (Latest Contact Info) Description 06/07/2006 Outpatient Historical [facility] Antoine Esqueda MD [address] [address] Other Screening Mammogram (Primary Dx) Social History Tobacco Use Types Packs/Day Years Used Date Smoking Tobacco: Never Assessed Comments Unknown Sex and Gender Information Value Date Recorded Sex Assigned at Not on file Legal Sex Female 3:32 AM COLLAR STAY FUSER TENDER Gender Identity Not on file Sexual Orientation Not on file documented as of this encounter Plan of Treatment Not on file documented as of this encounter Visit Diagnoses Diagnosis Other screening mammogram- Primary documented in this encounter Care Teams Driver License Examiner Relationship Specialty Start Date End Date Jeffy Negrete MD [address] [facility] [address] [place] [address] PCP - General Family Practice 01/07/24 documented as of this encounter
--- OUTSIDE RECORDS SUMMARY | 2024-11-11 18:45 | XMS_ITS | Encounter Summary ---
Author Organization [facility] Address [address] [place] [address] Care Team Providers Care Forestry Crew Chief Name Role Phone Jeffy Negrete MD Primary Care Provider [phone] [phone] Encounter Details Date Type Department Care Team (Late st Contact Info) Description 12/04/1999 Outpatient Historical Division of Neurology [address] [place] [address]., [address] [place] [address] Sarah Dunlap MD [address] [facility] [address] [place] [address] Social History Tobacco Use Types Packs/Day Years Used Date Smoking Tobacco: Never Assessed Comments Unknown Sex and Gender Information Value Date Recorded Sex Assigned at Not on file Legal Sex Female 3:32 AM HARP REPAIRER Gender Identity Not on file Sexual Orientation Not on file documented as of this encounter Plan of Treatment Not on file documented as of this encounter Visit Diagnoses Not on filedocumented in this encounter Care Teams Forestry Crew Chief Relationship Specialty Start Date End Date Jeffy Negrete MD [address] [address] PCP - General Family Practice 01/07/24 documented as of this encounter
--- OUTSIDE RECORDS SUMMARY | 2024-11-11 18:45 | XMS_ITS | Encounter Summary ---
Author Organization [facility] Address [address] [place] [address] Care Team Providers Care On Site Coordinator Name Role Phone Jeffy Negrete MD Primary Care Provider +1 [phone] Encounter Details Date Type Department Care Team (Late st Contact Info) Description 05/02/2006 Orders Only [facility] Medicine [address] [place] [address] Eleanor Foley MD NO ADDRESS ON FILE Social History Tobacco Use Types Packs/Day Years Used Date Smoking Tobacco: Never Assessed Comments Unknown Sex and Gender Information Value Date Recorded Sex Assigned at Not on file Legal Sex Female 3:32 AM GRIDDLE COOK Gender Identity Not on file Sexual Orientation Not on file documented as of this encounter Progress Notes * Eleanor Foley MD - 08/08/2007 7:17 PM CDT NURSE NAME: Genevieve Odell WEIGHT: 151lbs. BLOOD PRESSURE: 117/74. Right Arm Sitting PULSE: 79. Right Radial, Regular TEMPERATURE: 97??f. Oral HEIGHT: 5ft4 1/4in. ALLERGIES: Allergies are as listed. CHIEF COMPLAINT Seen for a preventive examination. HISTORY: HISTORY: 244.9-HYPOTHYROIDISM No complications noted from the medication presently being used. Recent laboratory work satisfactory. 272.4-HYPERLIPIDEMIA The medication was discontinued by the patient, with no reason given. The patient's most recent LDL was not at goal, most recent triglyceride is not at goal, most recent liver function is normal.had been off lipitor when last set of labs were done (took herself off). would liketo resume generic zocor at previous dose and repeat labs in 3 months. sporadically takes omega 3 fatty acids. PAST MEDICAL HISTORY: CHILDHOOD DISEASES: Positive history for chicken pox, positive history for measles, positive history for mumps. FAMILY HISTORY: GENERAL FAMILY ILLNESS: POSITIVE HISTORY OF HYPERCHOLESTEROLEMIA, POSITIVE FOR HYPOTHYROIDISM, POSITIVE FOR GLAUCOMA. FATHER: The father is . The cause of was natural causes. Illnesses: Cancer of the esophagus. MOTHER: The mother is . The cause of was natural causes. Illnesses: Alzheimer's disease, cancer of the breast. SIBLINGS: Seven siblings. Healthy. CHILDREN: 1) The patient's daughter is living. 2) The patient's son is living. 3) The patient's son is living. SOCIAL HISTORY: MARITAL HISTORY: , living with spouse. 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 TOBACCO USE: Has no significant smoking history. OCCUPATION: Homemaker. SAFETY ISSUES: Uses seat belts. PHYSICAL EXAMINATION: CONSTITUTIONAL: GENERAL APPEARANCE: OVERWEIGHT BODY HABITUS. EYES: CONJUNCTIVAE/LIDS: Conjunctivae and lids appear normal. EARS, NOSE, MOUTH AND THROAT: new surgical scars in front of and behind ears EXTERNAL/EARS AND NOSE: Overall appearance normal with [...] Regular rhythm. No murmurs, rubs, or gallops. ARTERIAL: Normal carotids. BREAST/CHEST: Normal chest. LYMPHATICS: No supraclavicular lymphadenopathy noted, no lymphadenopathy in the neck. GASTROINTESTINAL: ABDOMEN: Soft, non-tender, without masses. Bowel sounds active. LIVER/SPLEEN/KIDNEY: No hepatosplenomegaly, tenderness or nodularity. Kidneys not palpable. HERNIA: No hernias are present. SKIN: SKIN: Warm, dry, no diaphoresis, no significant lesions, irritation, rashes or ulcers. No induration, obvious subcutaneous nodules or tightening. PSYCHIATRIC: Judgment appropriate. Oriented. Normal memory. Mood and affect appropriate. PREVENTIVE COUNSELING The patient was counseled regarding prevention of dental and periodontal disease. ASSESSMENT/PLAN: 272.4-HYPERLIPIDEMIA MEDICATIONS: SIMVASTATIN ORAL TABLET 20 MG, 1 Every Day, 90 Dispensed, 3 Fills, status: NEW PRESCRIPTION, 05/02/2006. call to check labs in 3 months 627.9-MENOPAUSAL AND POSTMENOPAUSAL DISORDERS LAB ORDERS: Order number: [id number] Test Ordered: BONE DENSITY (HIP & SPINE) she is not sure when last bmd wasdone and I have no record V70.0-ROUTINE GENERAL MEDICAL EXAMINATION V76.51-SCREEN FOR CA OF COLON stool cards given Electronically Signed by: Eleanor Foley MD on Wednesday, May 03, 2006 documented in this encounter Plan of Treatment Not on file documented as of this encounter Visit Diagnoses Not on filedocumented in this encounter Care Teams On Site Coordinator Relationship Specialty Start Date End Date Jeffy Negrete MD [address] [phone] PCP - General Family Practice 01/07/24 documented as of this encounter
--- OUTSIDE RECORDS SUMMARY | 2024-11-11 18:45 | XMS_ITS | Encounter Summary ---
Author Organization [facility] Address [address] [place] [address] Care Team Providers Care Roller Die Cutting Machine Operator Name Role Phone Jeffy Negrete MD Primary Care Provider +1 [phone] Encounter Details Date Type Department Care Team (Latest Contact Info) Description 05/24/1998 Outpatient Historical [facility] Dani [place] MD [address] [place] [address] Unspecified hypothyroidism (Primary Dx) Social History Tobacco Use Types Packs/Day Years Used Date Smoking Tobacco: Never Assessed Comments Unknown Sex and Gender Information Value Date Recorded Sex Assigned at Not on file Legal Sex Female 3:32 AM PLUMBER HELPER Gender Identity Not on file Sexual Orientation Not on file documented as of this encounter Plan of Treatment Not on file documented as of this encounter Visit Diagnoses Diagnosis Unspecified hypothyroidism- Primary documented in this encounter Care Teams Roller Die Cutting Machine Operator Relationship Specialty Start Date End Date Jeffy Negrete MD [address] [facility] 60 [place] [address] PCP - General Family Practice 01/07/24 documented as of this encounter
--- OUTSIDE RECORDS SUMMARY | 2024-11-11 18:45 | XMS_ITS | Encounter Summary ---
Author Organization [facility] Address [address] [place] [address] Care Team Providers Care Car And Yard Supervisor Name Role Phone Jeffy Negrete MD Primary Care Provider +1 [phone] Encounter Details Date Type Department Care Team (Late st Contact Info) Description 05/29/2006 Orders Only [facility] Medicine [address] [place] [address] Eleanor Foley MD NO ADDRESS ON FILE Social History Tobacco Use Types Packs/Day Years Used Date Smoking Tobacco: Never Assessed Comments Unknown Sex and Gender Information Value Date Recorded Sex Assigned at Not on file Legal Sex Female 3:32 AM FLOUR BLENDER HELPER Gender Identity Not on file Sexual Orientation Not on file documented as of this encounter Progress Notes * Eleanor Foley MD - 08/08/2007 11:17 AM CDT NURSE NAME: Maricarmen Brown PULSE: 73. Right Radial, Regular TEMPERATURE: 99.3??f. Oral WEIGHT: [id number]. BLOOD PRESSURE: 106/74. Right Arm Sitting ALLERGIES: Allergies are as listed. CHIEF COMPLAINT Patient complains of sinus congestion. HISTORY: HISTORY OF PRESENT ILLNESS: UPPER RESPIRATORY: The upper respiratory symptoms began approximately 3 weeks ago. Symptoms includeheadache, symptoms include post nasal drainage, symptoms include nasal congestion, symptoms includenasal discharge, symptoms of sore throat, symptoms include sinus congestion, has symptoms of cough,low grade fever, symptoms include ear popping. SOCIAL HISTORY: TOBACCO USE: Has no significant smoking history. PHYSICAL EXAMINATION: CONSTITUTIONAL: GENERAL APPEARANCE: Healthy appearing patient in no distress. EYES: CONJUNCTIVAE/LIDS: Conjunctivae and lids appear normal. EARS, NOSE, MOUTH AND THROAT: EXTERNAL/EARS AND NOSE: Overall appearance normal with no scars, lesions or masses. EARS: Tympanic membranes shiny without retraction. Canals unremarkable. Hearing grossly normal. NOSE (AND SINUS): TURBINATES SWOLLEN BILATERALLY. ORAL: Inspection of gums, lips, palate, and teeth normal. No scars, lesions, or masses. Oral mucosaunremarkable with non-inflamed posterior pharynx. RESPIRATORY: Clear to auscultation and percussion. Normal respiratory effort. CARDIOVASCULAR: CARDIAC: Regular rhythm. No murmurs, rubs, or gallops. LYMPHATICS: No supraclavicular lymphadenopathy noted, no lymphadenopathy in the neck. ASSESSMENT/PLAN: 461.9-SINUSITIS UNSPECIFIED MEDICATIONS: AMOXICILLIN ORAL TABLET 875 MG, 1 Two Times A Day, 28 Dispensed, status: NEW PRESCRIPTION, 05/29/2006. Electronically Signed by: Eleanor Foley MD on Monday, May 29, 2006 documented in this encounter Plan of Treatment Not on file documented as of this encounter Visit Diagnoses Not on filedocumented in this encounter Care Teams Car And Yard Supervisor Relationship Specialty Start Date End Date Jeffy Negrete MD [address] [phone] PCP - General Family Practice 01/07/24 documented as of this encounter
--- OUTSIDE RECORDS SUMMARY | 2024-11-11 18:45 | XMS_ITS | Encounter Summary ---
Author Organization [facility] Address [address] [place] [address] Care Team Providers Care Papier Mache' Molder Name Role Phone Jeffy Negrete MD Primary Care Provider +1 [phone] Encounter Details Date Type Department Care Team (Late st Contact Info) Description 10/16/2004 Emergency [facility] Ravinder Christie MD [address] [place] [address] Er, Authorized P NO ADDRESS ON FILE HEADACHE (Primary Dx) Social History Tobacco Use Types Packs/Day Years Used Date Smoking Tobacco: Never Assessed Comments Unknown Sex and Gender Information Value Date Recorded Sex Assigned at Not on file Legal Sex Female 3:32 AM SENIOR STORAGE ENGINEER Gender Identity Not on file Sexual Orientation Not on file documented as of this encounter Plan of Treatment Not on file documented as of this encounter Visit Diagnoses Diagnosis Headache(784.0)- Primary Headache documented in this encounter Care Teams Papier Mache' Molder Relationship Specialty Start Date End Date Jeffy Negrete MD [address] [place] [address] PCP - General Family Practice 01/07/24 documented as of this encounter
--- OUTSIDE RECORDS SUMMARY | 2024-11-11 18:45 | XMS_ITS | Encounter Summary ---
Author Organization [facility] Address [address] [place] [address] Care Team Providers Care Furnace Combustion Tester Name Role Phone Jeffy Negrete MD Primary Care Provider +1 [phone] Encounter Details Date Type Department Care Team (Late st Contact Info) Description 04/17/2000 Outpatient Historical HIS [facility] DEPT [place] [address] [place] [address] Social History Tobacco Use Types Packs/Day Years Used Date Smoking Tobacco: Never Assessed Comments Unknown Sex and Gender Information Value Date Recorded Sex Assigned at Not on file Legal Sex Female 3:32 AM PRINCIPAL CLOUD ARCHITECT Gender Identity Not on file Sexual Orientation Not on file documented as of this encounter Plan of Treatment Not on file documented as of this encounter Visit Diagnoses Not on filedocumented in this encounter Care Teams Furnace Combustion Tester Relationship Specialty Start Date End Date Jeffy Negrete MD [address] [facility] [address] [place] [address] PCP - General Family Practice 01/07/24 documented as of this encounter
--- OUTSIDE RECORDS SUMMARY | 2024-11-11 18:45 | XMS_ITS | Encounter Summary ---
Author Organization [facility] Address [address] [place] [address] Care Team Providers Care Chief Data Officer Name Role Phone Jeffy Negrete MD Primary Care Provider +1 [phone] Encounter Details Date Type Department Care Team (Latest Contact Info) Description 04/18/2000 Outpatient Historical HIS [facility] PABLO Steiner, [place] [address] [place] [address] Encounter for long-term (current) use of other medications (Primary Dx) Social History Tobacco Use Types Packs/Day Years Used Date Smoking Tobacco: Never Assessed Comments Unknown Sex and Gender Information Value Date Recorded Sex Assigned at Not on file Legal Sex Female 3:32 AM ECONOMIC MANAGER Gender Identity Not on file Sexual Orientation Not on file documented as of this encounter Plan of Treatment Not on file documented as of this encounter Visit Diagnoses Diagnosis Encounter for long-term (current) use of other medications- Primary documented in this encounter Care Teams Chief Data Officer Relationship Specialty Start Date End Date Jeffy Negrete MD [address] [facility] [address] [place] [address] PCP - General Family Practice 01/07/24 documented as of this encounter
--- OUTSIDE RECORDS SUMMARY | 2024-11-11 18:45 | XMS_ITS | Encounter Summary ---
Author Organization [employer] [facility] Address [address] [place] [address] Care Team Providers Care Computer Aided Drafter Name Role Phone Jeffy Negrete MD Primary Care Provider +1 [phone] Encounter Details Date Type Department Care Team (Late st Contact Info) Description 06/01/2004 Outpatient Historical [facility], [address] Yun Dior MD [address] [facility] [address] [address] URIN TRACT INFECTION NOS (Primary Dx) Social History Tobacco Use Types Packs/Day Years Used Date Smoking Tobacco: Never Assessed Comments Unknown Sex and Gender Information Value Date Recorded Sex Assigned at Not on file Legal Sex Female 3:32 AM PSYCH TECH Gender Identity Not on file Sexual Orientation Not on file documented as of this encounter Plan of Treatment Not on file documented as of this encounter Visit Diagnoses Diagnosis Urinary tract infection, site not specified- Primary documented in this encounter Care Teams Computer Aided Drafter Relationship Specialty Start Date End Date Jeffy Negrete MD [address] [place] [address] PCP - General Family Practice 01/07/24 documented as of this encounter
--- OUTSIDE RECORDS SUMMARY | 2024-11-11 18:45 | XMS_ITS | Encounter Summary ---
Author Organization [facility] Address [address] [place] [address] Care Team Providers Care Form Builder Helper Name Role Phone Jeffy Negrete MD Primary Care Provider [phone] [phone] Encounter Details Date Type Department Care Team (Late st Contact Info) Description 05/02/2006 Outpatient Historical [facility] Medicine [address] [place] [address] Eleanor Foley MD NO ADDRESS ON FILE Social History Tobacco Use Types Packs/Day Years Used Date Smoking Tobacco: Never Assessed Comments Unknown Sex and Gender Information Value Date Recorded Sex Assigned at Not on file Legal Sex Female 3:32 AM SOURCE INSPECTOR Gender Identity Not on file Sexual Orientation Not on file documented as of this encounter Last Filed Vital Signs Vital Sign Reading Time Taken Comments Blood Pressure 117/74 05/02/2006 2:00 PM SOURCE INSPECTOR Pulse 79 05/02/2006 2:00 PM SOURCE INSPECTOR Temperature 36.1 C (97 F) 05/02/2006 2:00 PM SOURCE INSPECTOR Respiratory Rate - - Oxygen Saturation - - Inhaled Oxygen Concentration - - Weight 68.5 kg (151 lb) 05/02/2006 2:00 PM SOURCE INSPECTOR Height 163.2 cm (5' 4.25 ) 05/02/2006 2:00 PM CS T Body Mass Index 25.72 05/02/2006 2:00 PM SOURCE INSPECTOR documented in this encounter Plan of Treatment Not on file documented as of this encounter Visit Diagnoses Not on filedocumented in this encounter Care Teams Form Builder Helper Relationship Specialty Start Date End Date Jeffy Negrete MD [address] [facility] [address] [place] [phone] PCP - General Family Practice 01/07/24 documented as of this encounter
--- OUTSIDE RECORDS SUMMARY | 2024-11-11 18:45 | XMS_ITS | Encounter Summary ---
Author Organization [facility] Address [address] [place] [address] Care Team Providers Care Behavioral Health Therapist Name Role Phone Jeffy Negrete MD Primary Care Provider [phone] [phone] Encounter Details Date Type Department Care Team (Late st Contact Info) Description 01/17/2007 Outpatient Historical [facility] [place] [id number] [place] [address] [place] [address] [place] [address] [facility] [address] [place] [address] Social History Tobacco Use Types Packs/Day Years Used Date Smoking Tobacco: Never Assessed Comments Unknown Sex and Gender Information Value Date Recorded Sex Assigned at Not on file Legal Sex Female 3:32 AM HEALTHCARE ECONOMICS CONSULTANT Gender Identity Not on file Sexual Orientation Not on file documented as of this encounter Plan of Treatment Not on file documented as of this encounter Visit Diagnoses Not on filedocumented in this encounter Care Teams Behavioral Health Therapist Relationship Specialty Start Date End Date Jeffy Negrete MD [address] [facility] [address] [place] [address] PCP - General Family Practice 01/07/24 documented as of this encounter
--- OUTSIDE RECORDS SUMMARY | 2024-11-11 18:45 | XMS_ITS | Encounter Summary ---
Author Organization [employer] [facility] Address 

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
--- OUTSIDE RECORDS SUMMARY | 2024-11-11 18:45 | XMS_ITS | Encounter Summary ---
Author Organization [facility] Address 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
--- OUTSIDE RECORDS SUMMARY | 2024-11-11 18:45 | XMS_ITS | Encounter Summary ---
Author Organization [facility] Address 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
--- OUTSIDE RECORDS SUMMARY | 2024-11-11 18:45 | XMS_ITS | Encounter Summary ---
Author Organization [facility] Address [address] [place] [address] Care Team Providers Care English Lecturer Name Role Phone Jeffy Negrete MD Primary Care Provider +1 [phone] Encounter Details Date Type Department Care Team (Late st Contact Info) Description 05/23/1998 Outpatient Historical [facility] Internal Medicine Medical [place] [address] [facility] [address] [address] Dani Mayer MD [address] [place] [address] Social History Tobacco Use Types Packs/Day Years Used Date Smoking Tobacco: Never Assessed Comments Unknown Sex and Gender Information Value Date Recorded Sex Assigned at Not on file 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
[2024-11-11 19:16] LABS: Hematocrit 45.6 % (36-47); Hemoglobin 15.20 g/dL (11.27-16.99); Mean Corpuscular HGB Conc 33.3 g/dL (30-55); Mean Corpuscular Hemoglobin 30.2 pg (27-33); Mean Corpuscular Volume 90.5 fl (85-98); Nucleated Red Blood Cells % 0 %; Platelet Count 241 10^3/cmm (157-399); Red Blood Count 5.04 10^6/uL (3.85-5.65); White Blood Count 5.63 10^3/uL (3.29-11.43)
--- NOTE | 2024-11-11 19:18 | ECG_ITS ---
[facility] Date: 2024-11-11 Pat Name: Blessing Pal Department: Room: Gender: Female Geophysical Observer: : 1950 Requested By: Jeffy Rubio Order Number: [id number] Lilo MD: Ramirez Matute M.D. Measurements Intervals [place] Rate: 61 P: 69 WA: 217 QRS: 21 QRSD: 81 T: 60 QT: 384 QTc: 389 Interpretive Statements SINUS RHYTHM WITH FIRST DEGREE AV BLOCK WITH FREQUENT VENTRICULAR PREMATURE COMPLEXES No previous ECG available for comparison Electronically Signed On 11-11-2024 22:07:55 CDT by Ramirez Matute M.D. [email or web address]
[2024-11-11 19:44] LABS: Troponin(5th) Baseline 10 ng/L (0-10)
[2024-11-11] MEDS: morphine 4 mg/mL SDV 1 mL IVP (19:46)
[2024-11-11 19:51] LABS: Alanine Aminotransferase 14 U/L (0-33); Albumin Level 4.4 g/dL (3.5-5.2); Alkaline Phosphatase 86 U/L (35-105); Anion Gap 17.3 (5-19); Aspartate Amino Transferase 18 U/L (0-32); Blood Urea Nitrogen 12 mg/dL (8-23); Calcium 9.9 mg/dL (8.5-10.5); Carbon Dioxide 23 mmol/L (22-29); Chloride 103 mmol/L (98-107); Creatinine Clr Calc Pharmacy 54.9379; Globulin 2.8 g/dL (1.3-4.6); Glucose 100 mg/dL (65-115); Osmolality Calculated 288 mOsm/kg (285-295); Potassium 4.3 mmol/L (3.5-5.1); Sodium 139 mmol/L (136-145); Total Protein 7.2 g/dL (6.6-8.7)
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
== END 2024-11-11 22:13 | disposition home or self-care (01) ==
PROVIDERS: Emergency Provider Student in an Organized Health Care Education/Training Program; PCP Nurse Practitioner Family
DX: S39.012A Strain of muscle, fascia and tendon of lower back, initial encounter (principal); R55 Syncope and collapse; E78.2 Mixed hyperlipidemia; Z86.73 Personal history of transient ischemic attack (TIA), and cerebral infarction without residual deficits; W19.XXXA Unspecified fall, initial encounter
CPT/HCPCS: 36415; 71045; 80053; 84484; 85025; 93005; 96374; 96375; 99285; J1885; J2270; J9999

== ENCOUNTER → 2025-03-02 09:33 | Outpatient (BNVA) | payer MEDICARE, SELFPAY | PROVIDERS: PCP Nurse Practitioner Family; Visit Provider Nurse Practitioner Family | DX: E78.2 Mixed hyperlipidemia (principal); E03.8 Other specified hypothyroidism; E55.9 Vitamin D deficiency, unspecified; E07.9 Disorder of thyroid, unspecified; Z79.899 Other long term (current) drug therapy | CPT/HCPCS: 81003; 85025 ==

== ENCOUNTER → 2025-03-03 09:31 | Outpatient (BNVA) | payer MEDICARE, SELFPAY | PROVIDERS: PCP Nurse Practitioner Family; Visit Provider Nurse Practitioner Family | DX: E03.8 Other specified hypothyroidism (principal); E78.2 Mixed hyperlipidemia; E55.9 Vitamin D deficiency, unspecified; Z79.899 Other long term (current) drug therapy | CPT/HCPCS: 80053; 80061; 82306; 83036; 84439; 84443; 85025 ==

== ENCOUNTER → 2025-03-16 08:53 | Outpatient (BNVA) | payer MEDICARE, SELFPAY | PROVIDERS: PCP Nurse Practitioner Family; Visit Provider Nurse Practitioner Family | DX: E06.3 Autoimmune thyroiditis (principal); Z79.899 Other long term (current) drug therapy | CPT/HCPCS: 80053; 84443 ==